=== PATIENT | male | born 1960 | race African-American/Black ===

== ENCOUNTER 2016-06-02 15:18 | Inpatient (IN) | payer MEDICARE, MEDICAID ==
[~2016-06-02] VITALS: Ht 172.7 cm; Wt 74.0 kg
[2016-06-02] VITALS (20 sets, daily range): BP systolic 139–231; BP diastolic 76–136; PULSE 82–122; RESP 14–24; TEMP 97.8; O2SAT 92–100
[2016-06-02] MEDS ORDERED: PROPOFOL 1000 MG/100 ML INJ 100 ML ONE (15:23)
[2016-06-02] MEDS ORDERED: PROPOFOL 1000 MG/100 ML INJ 100 ML IV SCH ×2 (15:45→17:15)
[2016-06-02] MEDS ORDERED: ROCURONIUM INJ 100 MG/10 ML VIAL IV ONE (15:45)
[2016-06-02] MEDS ORDERED: LORazepam 2 MG/ML VIAL IV PUSH ONE (15:45)
[2016-06-02] MEDS ORDERED: niCARdipine INJ 25 MG in SODIUM CHLOR 0.9% 250 ML INJ 250 ML IV SCH (15:45)
[2016-06-02] MEDS ORDERED: ETOMIDATE 20 MG/10 ML VIAL IV PUSH ONE (15:45)
[2016-06-02 16:09] LABS: AUTOMATED NEUTROPHIL # 4.5 TH/MM3 (1.8-7.7); BASOPHIL % 0.7 % (0.0-2.0); EOSINOPHIL % 0.7 % (0.0-4.0); HEMO FLAGS DIFF FINAL; LYMPH % 11.3 % (9.0-44.0); LYMPHOCYTE # 0.7 TH/MM3 (1.0-4.8); MEAN CELL VOLUME 89.2 FL (80.0-100.0); MEAN CORPUSCULAR HEMOGLOBIN 30.5 PG (27.0-34.0); MEAN CORPUSCULAR HGB CONC 34.2 % (32.0-36.0); MONO % 11.5 % (0.0-8.0); NEUT % 75.8 % (16.0-70.0); PLATELET COUNT 180 TH/MM3 (150-450); RED BLOOD COUNT 4.26 MIL/MM3 (4.50-5.90); RED CELL DISTRIBUTION WIDTH 15.4 % (11.6-17.2); WHITE BLOOD COUNT 5.9 TH/MM3 (4.0-11.0)
--- NOTE | 2016-06-02 16:13 | RADRPT ---
EXAM DATE/TIME: 06/02/2016 15:47 [facility] COMPARISON: No previous studies available for comparison. INDICATIONS : Syncopal episode. Post intubation. MEDICAL HISTORY : Unobtainable SURGICAL HISTORY : Unobtainable ENCOUNTER: Initial ACUITY: 1 day PAIN SCORE: Non-responsive. LOCATION: chest FINDINGS: Endotracheal tube tip is well above the kathryn. Gastric tube tip is projected in the stomach, but th e side-port is approximately 2.5 cm above the level of the diaphragm. the right lung is clear. Ther e are patchy infiltrates in the left lower lung with partial loss of delineation of the left hemidiap hragm. No evidence of pneumothorax. The heart is normal in size. CONCLUSION: 1. ET tube in good position. 2. Gastric tube side-port is above the level of the diaphragm and needs to be advanced at least 4 cm. 3. Patchy infiltrates at the left lung base with partial consolidation. Hubert Gonzalez MD on June 02, 2016 at 16:09 Board Certified Radiologist. This report was verified electronically.
[2016-06-02 16:15] LABS: I-STAT POTASSIUM 3.9 MMOL/L (3.5-4.9); I-STAT SODIUM 143 MMOL/L (138-146)
[2016-06-02 16:22] LABS: PROTHROMBIN TIME - PATIENT 11.4 SEC (9.8-11.6)
--- NOTE | 2016-06-02 16:24 | RADRPT ---
EXAM DATE/TIME: 06/02/2016 16:04 [facility] COMPARISON: No previous studies available for comparison. INDICATIONS : Altered mental status. RADIATION DOSE: 52.36 CTDIvol (mGy) MEDICAL HISTORY : Non-responsive. SURGICAL HISTORY : Non-responsive. ENCOUNTER: Initial ACUITY: 1 day PAIN SCALE: Non-responsive LOCATION: cranial TECHNIQUE: Multiple contiguous axial images were obtained of the head. Using automated exposure control and adj ustment of the mA and/or kV according to patient size, radiation dose was kept as low as reasonably a chievable to obtain optimal diagnostic quality images. FINDINGS: CEREBRUM: The ventricles are normal for age. No evidence of midline shift, mass lesion, hemorrhage or acute in farction. No extra-axial fluid collections are seen. POSTERIOR FOSSA: The cerebellum and brainstem are intact. The 4th ventricle is midline. The cerebellopontine angle i s unremarkable. EXTRACRANIAL: The visualized portion of the orbits is intact. SKULL: The calvaria is intact. No evidence of skull fracture. CONCLUSION: Negative noncontrast CT brain. Hubert Gonzalez MD on June 02, 2016 at 16:22 Board Certified Radiologist. This report was verified electronically.
[2016-06-02 16:26] LABS: ALKALINE PHOSPHATASE 127 U/L (45-117); ALT (GPT) 26 U/L (12-78); ANION GAP 21 MEQ/L (5-15); AST (GOT) 3 U/L (15-37); BICARBONATE 24.8 MEQ/L (21.0-32.0); BLOOD UREA NITROGEN 98 MG/DL (7-18); CHLORIDE 97 MEQ/L (98-107); GLOMERULAR FILTRATION RATE 2 ML/MIN (>89); POTASSIUM 3.9 MEQ/L (3.5-5.1); SODIUM (NA) 143 MEQ/L (136-145); TOTAL BILIRUBIN ADULT 0.5 MG/DL (0.2-1.0)
[2016-06-02 16:38] LABS: BLOOD GAS BASE EXCESS 1.5 mmol/L (-2-2); BLOOD GAS CARBOXYHEMOGLOBIN 1.9 % (0-4); BLOOD GAS HCO3 24 mmol/L (22-26); BLOOD GAS METHEMOGLOBIN 2.1 % (0-2); BLOOD GAS O2 HGB SATURATION 96 % (90-100); BLOOD GAS OXYGEN CONTENT 18.9 Vol % (12.0-20.0); BLOOD GAS PCO2 31 mmHg (38-42); BLOOD GAS PO2 307 mmHG (61-120); BLOOD GAS TOTAL HGB 13.5 G/DL (12.0-16.0); TEMP CORR TO 98.6
[2016-06-02 16:39] LABS: CRITICAL VALUE YES; DRAW SITE RT RADIAL; FIO2 100 %; NUMBER OF ARTERIAL PUNCTURES 1; OXYGEN DEVICE VENTILATOR; STAT YES; VENT SETTINGS A/C14/550/PEEP5
--- NOTE | 2016-06-02 17:13 | PD ---
HPI Chief Complaint: Altered Mental Status Time Seen by Provider: 15:34 Travel History International Travel<30 days: No Contact w/Intl Traveler<30days: No Traveled to known affect area: No History of Present Illness HPI Patient of unknown identity was brought in by EMS as a syncopal episode and altered mental status. The roommate called EMS because patient was found unresponsive. As history of end-stage renal disease and is on peritoneal dialysis. Patient started to regain consciousness en route and told the paramedics about his medical history. As per them he was in half-way for some time and now he is doing peritoneal dialysis twice a day at home. They brought his home medications with them. I was called emergently into the room as soon as the paramedics brought him inside the room because he was unconscious again with a left lateral gaze. Blood pressure was 250/150. He was unresponsive. Oxygen saturation was in the 70s to 80s. It seemed like he was having a tonic seizure. PFSH Past Medical History Narrative Medical End-stage renal disease, hemodialysis Social History Tobacco Use: Yes Allergies-Medications (Allergen,Severity, Reaction): Coded Allergies: UNOBTAINABLE (Unverified , 06/02/16) Comments Unobtainable Reported Meds & Prescriptions Reported Meds & Active Scripts Active Reported Renagel (Sevelamer HCl) 800 Mg Tab 2,400 Mg PO TID Afeditab CR (Nifedipine) 30 Mg Tab 30 Mg PO BID Ranitidine (Ranitidine HCl) 150 Mg Tab 150 Mg PO DAILY Nephrocaps (B-Complex W/ C & Folic Acid) 1 Cap 1 Cap PO DAILY If on dialysis, take after treatment. Lisinopril 20 Mg Tab 20 Mg PO DAILY Calcitriol 0.25 Mcg Cap 0.25 Mcg PO Losartan (Losartan Potassium) 100 Mg Tab 100 Mg PO BID Pantoprazole (Pantoprazole Sodium) 40 Mg Tab 40 Mg PO DAILY Narrative Medication [facility]. Review of Systems Except as stated in HPI: all other systems reviewed are Neg Physical Exam Narrative GENERAL: Unresponsive, left lateral gaze with nystagmus, drooling SKIN: Warm and dry. Pallor HEAD: Atraumatic. Normocephalic. EYES: Pupils equal and round. No scleral icterus. No injection or drainage. Left lateral gaze with nystagmus, pallor ENT: No nasal bleeding or discharge. Mucous membranes pink and moist. NECK: Trachea midline. No JVD. CARDIOVASCULAR: Regular rate and rhythm. No murmur appreciated. RESPIRATORY: No accessory muscle use. Clear to auscultation. Breath sounds equal bilaterally. GASTROINTESTINAL: Abdomen soft, non-tender, nondistended. Hepatic and splenic margins not palpable. MUSCULOSKELETAL: No obvious deformities. No clubbing. No cyanosis. No edema. NEUROLOGICAL: GCS of 3 PSYCHIATRIC: Unable to assess Data Data Last Documented VS Vital Signs Date Time Temp Pulse Resp B/P Pulse Ox O2 Delivery O2 Flow Rate FiO2 06/02/16 17:00 94 20 165/91 100 Ventilator 06/02/16 16:40 50 Orders Propofol 1000 Mg/100 Ml Inj (Diprivan 10 (06/02/16 15:23) Electrocardiogram (06/02/16 15:22) Alcohol (Ethanol) (06/02/16 15:22) Ammonia (06/02/16 15:22) Complete Blood Count With Diff (06/02/16 15:22) Comprehensive Metabolic Panel (06/02/16 15:22) Prothrombin Time / Inr (Pt) (06/02/16 15:22) Act Partial Throm Time (Ptt) (06/02/16 15:22) Troponin I (06/02/16 15:22) Lactic Acid Sepsis Protocol (06/02/16 15:22) Arterial Blood Gas (Abg) (06/02/16 15:22) Blood Culture (06/02/16 15:22) Chest, Single Ap (06/02/16 15:22) Ct Brain W/O Iv Contrast(Rout) (06/02/16 15:22) Blood Glucose (06/02/16 15:22) Ecg Monitoring (06/02/16 15:22) Iv Access Insert/Monitor (06/02/16 15:22) Cath For Specimen (06/02/16 15:22) Oximetry (06/02/16 15:22) Type And Screen (06/02/16 15:22) Rocuronium Inj (Zemuron Inj) (06/02/16 15:45) Etomidate Inj (Amidate Inj) (06/02/16 15:45) Nicardipine Inj (Cardene Inj) (06/02/16 15:45) Lorazepam Inj (Ativan Inj) (06/02/16 15:45) Propofol 1000 Mg/100 Ml Inj (Diprivan 10 (06/02/16 15:45) ^ Infusion (06/02/16 15:38) RASS (06/02/16 15:38) Neurological Rass Scale TOSHIA.Q2H (06/02/16 15:38) Tyra-Gastric Tube Insert/Mon (06/02/16 15:38) I-Stat Creatinine (06/02/16 15:22) I-Stat Profile (06/02/16 15:22) Piperacil-Tazo 4.5 Gm Premix (Zosyn 4.5 (06/02/16 17:15) Vancomycin Inj (Vancomycin Inj) (06/02/16 17:15) Admit To Inpatient (06/02/16 ) Code Status (06/02/16 17:02) Vital Signs (Adult) TOSHIA.Q1H (06/02/16 17:02) Activity Bed Rest (06/02/16 17:02) ^ Elevate Head Of Bed (06/02/16 17:02) Neuro Checks . ORDERED (06/02/16 17:02) Pantoprazole Inj (Protonix Inj) (06/02/16 17:15) Albuterol-Ipratropium Neb (Duoneb Neb) (06/02/16 17:15) Complete Blood Count With Diff (06/03/16 04:00) Comprehensive Metabolic Panel (06/03/16 04:00) Consult Nephrology (06/02/16 ) Programmer Operator Numerical Control / Telemetry (06/02/16 17:02) Heparin Inj (Heparin Inj) (06/02/16 18:00) Scd Bilateral/Knee High TOSHIA.BID (06/02/16 17:02) ^ Initiate Protocol (06/02/16 17:02) ^ Instruction (06/02/16 17:02) [facility] [place] Nursing Information (06/02/16 17:15) Chlorhexidine 2% Cloth (Chlorhexidine 2% (06/03/16 04:00) Chlorhexidine 2% Cloth (Chlorhexidine 2% (06/02/16 17:15) Mrsa Pcr Surveillance (06/02/16 17:02) Inpatient Certification (06/02/16 ) Sputum Culture And Gram Stain (06/02/16 17:02) Legionella Urinary Antigen (06/02/16 17:02) Pneumococcal Urinary Antigen (06/02/16 17:02) Eeg Study (06/02/16 ) Consult Neurology (06/02/16 ) Propofol 1000 Mg/100 Ml Inj (Diprivan 10 (06/02/16 17:15) Lorazepam Inj (Ativan Inj) (06/02/16 17:15) Azithromycin Inj (Zithromax Inj) (06/02/16 18:00) Dextrose 50% In Divya (Vial) Inj (D50w (Vi (06/02/16 17:15) Glucagon Inj (Glucagon Inj) (06/02/16 17:15) Insulin Human Reg Supp Scale (Novolin R (06/02/16 17:15) Admit Order (Ed Use Only) (06/02/16 17:14) Piperacil-Tazo 2.25 Gm Premix (Zosyn 2.2 (06/03/16 00:00) Labs Laboratory Tests Test 06/02/16 06/02/16 06/02/16 15:33 15:34 16:28 Bedside Hemoglobin 13.6 G/DL Bedside Hematocrit 40.0 % Prothrombin Time 11.4 SEC Prothromb Time International 1.0 RATIO Ratio Activated Partial 28.0 SEC Thromboplast Time Bedside Sodium 143 MMOL/L Sodium Level 143 MEQ/L Bedside Potassium 3.9 MMOL/L Potassium Level 3.9 MEQ/L Bedside Chloride 101 MMOL/L Chloride Level 97 MEQ/L Carbon Dioxide Level 24.8 MEQ/L Anion Gap 21 MEQ/L Bedside Blood Urea Nitrogen 94 MG/DL Blood Urea Nitrogen 98 MG/DL Creatinine 29.15 MG/DL Bedside Creatinine GREATER THAN 20.0 MG/DL Estimat Glomerular Filtration 2 ML/MIN Rate Bedside Glucose 154 MG/DL Random Glucose 154 MG/DL Lactic Acid Level 5.1 mmol/L Calcium Level 8.8 MG/DL Total Bilirubin 0.5 MG/DL Aspartate Amino Transf 3 U/L (AST/SGOT) Alanine Aminotransferase 26 U/L (ALT/SGPT) Alkaline Phosphatase 127 U/L Ammonia LESS THAN 10 MCMOL/L Troponin I 0.16 NG/ML Total Protein 7.5 GM/DL Albumin 3.0 GM/DL Ethyl Alcohol Level LESS THAN 3 MG/DL White Blood Count 5.9 TH/MM3 Red Blood Count 4.26 MIL/MM3 Hemoglobin 13.0 GM/DL Hematocrit 38.0 % Mean Corpuscular Volume 89.2 FL Mean Corpuscular Hemoglobin 30.5 PG Mean Corpuscular Hemoglobin 34.2 % Concent Red Cell Distribution Width 15.4 % Platelet Count 180 TH/MM3 Mean Platelet Volume 9.9 FL Neutrophils (%) (Auto) 75.8 % Lymphocytes (%) (Auto) 11.3 % Monocytes (%) (Auto) 11.5 % Eosinophils (%) (Auto) 0.7 % Basophils (%) (Auto) 0.7 % Neutrophils # (Auto) 4.5 TH/MM3 Lymphocytes # (Auto) 0.7 TH/MM3 Monocytes # (Auto) 0.7 TH/MM3 Eosinophils # (Auto) 0.0 TH/MM3 Basophils # (Auto) 0.0 TH/MM3 CBC Comment DIFF FINAL Differential Comment Crossmatch Leukocyte-Reduced Red Blood Cells Blood Bank Comment Blood Gas Puncture Site RT RADIAL Blood Gas Patient Temperature 98.6 Blood Gas HCO3 24 mmol/L Blood Gas Base Excess 1.5 mmol/L Blood Gas Oxygen Saturation 96 % Arterial Blood pH 7.51 Arterial Blood Partial 31 mmHg Pressure CO2 Arterial Blood Partial 307 mmHG Pressure O2 Arterial Blood Oxygen Content 18.9 Vol % Arterial Blood 1.9 % Carboxyhemoglobin Arterial Blood Methemoglobin 2.1 % Blood Gas Hemoglobin 13.5 G/DL Oxygen Delivery Device VENTILATOR Blood Gas Ventilator Setting A/C14/550/PEEP5 Blood Gas Inspired Oxygen 100 % [facility] Medical Decision Making Medical Screen Exam Complete: Yes Emergency Medical Condition: Yes Medical Record Reviewed: Yes Interpretation(s) Twelve-lead EKG was reviewed by me. Normal sinus rhythm, normal axis, LVH, peaked T waves. Heart rate of 90 bpm. Differential Diagnosis Status epilepticus, respiratory failure, anemia, intracranial bleed, end-stage renal disease, electrolyte abnormalities Narrative Course 5 PM decision was made by me to intubate the patient in order to protect his airway. Patient was initially given 2 mg of IV Ativan. After the successful RSI was done patient was started on Cardene drip and propofol drip. CAT scan was done emergently which was within normal limits. Blood test so far are within normal limit except for his BUN/creatinine that's expectantly high. Lactic acid is elevated which in my opinion is from seizures. Have admitted the patient to the line repairer who has requested a dose of Zosyn and vancomycin. Patient quite possibly has an aspiration pneumonia. Current blood pressure is 175 systolic. 5:30 PM I spoke with Dr. Vázquez and requested him to consult on the patient urgently for dialysis. Critical Care Narrative Aggregate critical care time was 60 minutes. Time to perform other separately billable procedures was not included in the critical care time. My time did not include minutes spent treating any other patients simultaneously or on activities that did not directly contribute to the patient's treatment. The services I provided to this patient were to treat and/or prevent clinically significant deterioration that could result in: Status epilepticus, hypertensive emergency, respiratory failure I provided critical care services requiring my management, as noted below: Chart data review, documentation time, medication orders and management, vital sign assessments/reviewing monitor data, ordering and reviewing lab tests, ordering and interpreting/reviewing x-rays and diagnostic studies, care of the patient and discussion of the patient with the admitting physicians. Procedures Procedure Narrative After the risks and benefits were discussed the following procedure was performed: INTUBATION: The patient was put in optimal position for the procedure. Rapid sequence intubation was initiated by me using 20 milligrams of etomidate IV and 100 milligrams of rocuronium IV. The patient was intubated with a 7.5 cuffed endotracheal tube. Tube placement was confirmed by visualization of the tube and balloon passing through the cords, capnometry and subsequent chest x-ray. Breath sounds were equal and well aerated bilaterally postintubation. No breath sounds over stomach. Patient tolerated procedure well. EKG Prior to Arrival: No Physician Communication Physician Communication Dr. Brennan, Dr. Vázquez Diagnosis Primary Impression: Status epilepticus Additional Impressions: Hypertensive emergency Respiratory failure Qualified Code: J96.01 - Acute respiratory failure with hypoxia Aspiration pneumonia Qualified Code: J69.0 - Aspiration pneumonia of right lower lobe, unspecified aspiration pneumonia type Elevated troponin I level End stage renal disease Peritoneal dialysis status Admitting Information Admitting Physician Requests: Admit Scripts Cefuroxime 500 Mg Osa461 Mg PO BID #14 TAB Ref 0 Prov:Gabe Eid MD 06/05/16 Azithromycin 500 Mg Tep195 Mg PO DAILY #5 TAB Ref 0 Prov:Gabe Eid MD 06/05/16 Carvedilol 12.5 Mg Tab12.5 Mg PO BID #60 TAB Ref 0 Prov:Gabe Eid MD 06/05/16 Hydralazine 25 Mg Tab25 Mg PO TID #90 TAB Ref 0 Take with a meal Prov:Gabe Eid MD 06/05/16 Lisa Mtz MD Jun 02, 2016 17:13
[2016-06-02] MEDS ORDERED: GLUCAGON 1 MG/ML VIAL OTHER PRN (17:15)
[2016-06-02] MEDS: PANTOPRAZOLE SODIUM 40 MG VIAL IV SCH (17:15)
[2016-06-02] MEDS ORDERED: CHLORHEXIDINE GLUCONATE 2 % 1 PACK (2 CLOTHS) TOP PRN (17:15)
[2016-06-02] MEDS ORDERED: LORazepam 2 MG/ML VIAL IV PUSH PRN (17:15)
[2016-06-02] MEDS ORDERED: VANCOMYCIN INJ 1,000 MG in SODIUM CHLOR 0.9% 250 ML INJ 250 ML IV SCH (17:15)
[2016-06-02] MEDS ORDERED: DEXTROSE 50% IN WATER 50 ML VIAL(D50) IV PUSH PRN (17:15)
[2016-06-02] MEDS ORDERED: PIPERACIL-TAZO 4.5 GM PREMIX 100 ML IV ONE (17:15)
[2016-06-02] MEDS ORDERED: MISCELLANEOUS NURSING INFORMATION XX SCH (17:15)
[2016-06-02] MEDS: RESP: ALBUTEROL 2.5 MG/IPRATROPIUM 0.5 MG NEB (SCH) INH ×2 (17:32→23:30)
[2016-06-02 17:49] LABS: LACTIC ACID GHOST NOT REPORTABLE
--- NOTE | 2016-06-02 18:03 | MH ---
cc: BRYSON PANDEY M.D. DATE OF ADMISSION: 06/02/2016 HISTORY OF PRESENT ILLNESS: The patient is a 2-biz-djip-old male with past medical history of end-stage renal disease on hemodialysis who was brought in by EMS for altered mental status. The roommate called EMS after the patient was found unresponsive. He regained consciousness en route. He is on peritoneal dialysis twice a day at home. The patient was given Narcan 0.4 mg en route without any significant relief. In the emergency room, he became unconscious again with a left lateral gaze. The patient was hypertensive with a blood pressure of 250/150 and he dropped his saturation in the 70s to 80s. The patient was subsequently intubated with etomidate and vecuronium and placed on full mechanical ventilation. In addition he is sedated with Diprivan and received Ativan 2 milligrams IV push at 1520. Due to his altered mental status, CT scan of the brain was obtained which did not show any evidence of acute intracranial process. He was started on Cardene drip and his last blood pressure was 160/83. ABG post-intubation showed a pH of 7.51, CO2 31, pAO2 307, bicarb 24 and saturation of 96% on assist control ventilation with a rate of 14, tidal volume 550, PEEP of 5 and 100% FIO2. His laboratory data is significant for a BUN of 98, a creatinine of 29.1 and a potassium level of 3.9. The patient also was found to have elevated lactic acid level at 5.1. His alcohol level was less than 3. IMAGING STUDIES: Chest x-ray post-intubation showed the ET tube above the kathryn and patchy infiltrates in the left lung and the left lung base with partial consolidation. PAST MEDICAL HISTORY: Past medical history is significant for: 1. End-stage renal disease on preliminary dialysis twice a day. 2. Hypertension. PAST SURGICAL HISTORY: Unobtainable. ALLERGIES: Unobtainable. MEDICATIONS: Unknown. FAMILY HISTORY: Noncontributory. SOCIAL HISTORY: Unknown. REVIEW OF SYSTEMS: Unobtainable. PHYSICAL EXAMINATION: GENERAL: The patient is a 68-oyo-kaxy-old male intubated and sedated with Diprivan. VITAL SIGNS: Afebrile. Pulse of 100. Blood pressure on arrival was 250/150, currently 160/83, saturation 97%. VENT SETTINGS: Assist control rate of 14, tidal volume 550, PEEP of 5, 50% FIO2. HEAD, EYES, EARS, NOSE, THROAT: Normocephalic and atraumatic. Pupils equal, round and reactive to light and accommodation. Extraocular muscles intact. Left lateral gaze with nystagmus noted. NECK: The neck is supple. No jugular venous distention, adenopathy or thyromegaly. Trachea in the midline. Orally intubated. CARDIOVASCULAR: Regular rate and rhythm. Normal S1 and S2. No murmurs, rubs or gallops noted. PULMONARY: Bilateral equal air entry. No rales or wheezing. ABDOMEN: The abdomen is soft, nontender and no distention. Positive bowel sounds. EXTREMITIES: No cyanosis, clubbing or edema. PHYSICAL EXAMINATION The patient is a 41. She rolled male intubated and sedated with Diprivan. Vital signs: Afebrile, pulse of 100, blood pressure on arrival 250/52, 251, 50 currently 160/83, saturation 97% vent setting assist control rate of 14, tidal volume 550, PEEP of five 50% FIO2. HEENT: Atraumatic, normocephalic pupil equal and active to accommodation X on muscles intact. Left lateral gaze with nystagmus noted. Neck: Supple. No JVD, adenopathy or thyromegaly. Trachea midline. Orally intubated. Cardiovascular: Regular rate and rhythm. Normal S1-S2. No murmurs, rubs or gallops noted. Pulmonary exam bilateral equal NEUROLOGIC: Intubated and sedated with Diprivan. LABORATORY DATA: WBCs 5.9, hemoglobin 13, hematocrit 38, platelet count of 180,000. Sodium 143, potassium 3.9, chloride 97, CO2 24, BUN 98, creatinine 29.1, glucose 154, lactic acid 5.1, ammonia less than 10. INR 1, PT 11.4. Alcohol level less than 3. IMAGING STUDIES: CT brain negative for acute intracranial process. Chest x-ray showed ET tube above the kathryn, patchy infiltrates in the left lung base with partial consolidation. IMPRESSION: 1. Acute respiratory failure requiring intubation and mechanical ventilation. 2. Altered mental status, rule out seizure versus hypertensive encephalopathy. 3. Hypertensive emergency. 4. Lactic acidemia likely related to seizures. 5. End-stage renal disease on peritoneal dialysis. 6. Aspiration pneumonia. 7. Hyperglycemia. RECOMMENDATIONS: 1. Continue with Diprivan infusion for sedation and daily sedation vacation when appropriate. 2. Monitor neuro status closely. CT scan of the brain in the emergency department showed no evidence of any acute intracranial process. 3. Will consult neurology service and will obtain EEG. 4. Continue with Ativan 1 milligram q. 4-hour p.r.n. for seizures and agitation. 5. Continue with vent support and maintain sats above 92%. 6. Bronchodilators in the form of DuoNeb q. 6. 7. We will initiate ICU vent bundle. 8. Decrease tidal volume to 500 and FIO2 240%. 9. Monitor heart rate and blood pressure closely and maintain MAP greater 65 mmHg. 10. Wean off Cardene drip. 12. Serial lactic acid monitoring. 13. Obtain a 2-D echocardiogram to evaluate left ventricular function and rule out regional wall motion abnormalities. 14. EKG in the emergency department showed normal sinus rhythm, left ventricular hypertrophy, peaked T waves with heart rate of 90 beats per minute. 15. Monitor renal function and avoid nephrotoxins. Dr. Vázquez from the nephrology service has been consulted for dialysis. The patient is on peritoneal dialysis at home. In addition he has a functioning fistula in the left upper extremity. 16. Keep n.p.o. for now and place on Protonix 40 milligrams IV daily. Start nutrition support within the next 24 hours if remains intubated. 17. Place on broad-spectrum antibiotics. Will give one dose of vancomycin and place on Zosyn and azithromycin. Monitor for signs of infection which includes fever and WBC. Will obtain a sputum culture with gram stain and will check strep pneumoniae and Legionella urinary antigen. Two sets of blood cultures have been have been has been performed in the emergency department. 18. Place on sliding scale insulin with Accu-Chek q. 6-hour for glycemic control. 19. Monitor CBC. 20. GI prophylaxis with Protonix 40 milligrams daily and DVT prophylaxis with SCDs and heparin subcu. Further recommendations will be based on the hospital course. CRITICAL CARE TIME: Fifty (50) minutes excluding procedures. MD PEDRO Hill/MARÍA /5:30 PM /5:48 PM
[2016-06-02] MEDS ORDERED: SODIUM CHLOR 0.9% 1000 ML INJ 1,000 ML IV PRN ×2 (18:37)
--- NOTE | 2016-06-02 18:44 | PD.CONS ---
[facility] Service Nephrology Consult Requested By Reason for Consult ESRD Primary Care Physician Unknown History of Present Illness This patient's name appears to be Ramone Aguirre. He is an male who appears to have ESRD. He has a PD catheter and a mature, well formed AVF(left arm). Apparently he was currently on PD. No history could be obtained from him as he is currently intubated, on the ventilator, and unresponsive. He was found with altered mental status in a "[place]" near the local [place]dc and roommates or neighbors called EMS. He was brought to the ER. ER staff noted that he had "nystagmus". Soon he became completely unresponsive. He was intubated. Apparently he was in fdc, and released recently. No confirmation of this story is available. Also not known is who was managing his dialysis. His serum K was 3.9, BUN 98, and creatinine around 29. He was hypertensive, and placed on Cardene drip. Review of Systems ROS Limitations: Clinical Condition, Altered Mental Status, Unresponsive Past Family Social History Allergies: Coded Allergies: UNOBTAINABLE (Unverified , 06/02/16) Past Medical History I reviewed the medications that he was prescribed, and based on that, I believe he has ESRD, hypertension, hyperphosphatemia, secondary hyperparathyroidism. Past Surgical History AVF placement. PD catheter placement. Reported Medications Noted. Active Ordered Medications Current Medications Medications (Trade) Dose Ordered Sig/Chris Route Start Time Stop Time Status Last Admin (Cardene Inj/NS 250 ml Inj) 260 ml @ 0 mls/hr TITRATE IV 06/02/16 15:45 06/02/16 16:49 (Protonix Inj) 40 mg DAILY IV 06/02/16 17:15 (Heparin Inj) 5,000 units Q12H SQ 06/02/16 18:00 Miscellaneous Information 1 Q361D XX 06/02/16 17:15 (Chlorhexidine 2% Cloth) 3 pack Taper DAILY@04 TOP 06/03/16 04:00 05/30/17 03:59 Chlorhexidine Gluconate 3 pack 3 pack UNSCH PRN TOP 06/02/16 17:15 Piperacillin Sod/ Tazobactam Sod 50 ml @ 100 mls/hr Q6H IV 06/03/16 00:00 (Diprivan 1000 Mg/100ml Inj) 100 ml @ 0 mls/hr TITRATE IV 06/02/16 17:15 Lorazepam 1 mg 1 mg Q4H PRN IV PUSH 06/02/16 17:15 (Zithromax Inj/ NS 250 ml Inj) 250 ml @ 250 mls/hr Q24H IV 06/02/16 18:00 (D50w (Vial) Inj) 25 ml UNSCH PRN IV PUSH 06/02/16 17:15 (Glucagon Inj) 1 mg UNSCH PRN OTHER 06/02/16 17:15 (NovoLIN R SUPPLEMENTAL SCALE) 1 Q6H SQ 06/02/16 17:15 Family History unavailable. Social History Unavailable. Physical Exam Vital Signs Vital Signs Date Time Temp Pulse Resp B/P Pulse Ox O2 Delivery O2 Flow Rate FiO2 06/02/16 18:01 92 55 06/02/16 16:40 100 50 06/02/16 15:55 100 06/02/16 15:28 100 100 06/02/16 15:20 95 17 99 06/02/16 15:20 104 18 231/136 99 Physical Exam GENERAL: Young male, intubated, unresponsive. SKIN: Warm and dry. HEAD: Normocephalic. EYES: No scleral icterus. No injection or drainage. NECK: Supple, trachea midline. No JVD or lymphadenopathy. CARDIOVASCULAR: Regular rate and rhythm without murmurs, gallops, or rubs. RESPIRATORY: bilateral wheezing and rhonchi GASTROINTESTINAL: Abdomen soft, non-tender, nondistended. MUSCULOSKELETAL: trace edema. BACK: No CVA tenderness. Laboratory Laboratory Tests Test 06/02/16 06/02/16 06/02/16 15:33 16:28 18:00 White Blood Count 5.9 Red Blood Count 4.26 Hemoglobin 13.0 Bedside Hemoglobin 13.6 Hematocrit 38.0 Bedside Hematocrit 40.0 Mean Corpuscular Volume 89.2 Mean Corpuscular Hemoglobin 30.5 Mean Corpuscular Hemoglobin 34.2 Concent Red Cell Distribution Width 15.4 Platelet Count 180 Mean Platelet Volume 9.9 Neutrophils (%) (Auto) 75.8 Lymphocytes (%) (Auto) 11.3 Monocytes (%) (Auto) 11.5 Eosinophils (%) (Auto) 0.7 Basophils (%) (Auto) 0.7 Neutrophils # (Auto) 4.5 Lymphocytes # (Auto) 0.7 Monocytes # (Auto) 0.7 Eosinophils # (Auto) 0.0 Basophils # (Auto) 0.0 CBC Comment DIFF FINAL Differential Comment Prothrombin Time 11.4 Prothromb Time International 1.0 Ratio Activated Partial 28.0 Thromboplast Time Bedside Sodium 143 Sodium Level 143 Bedside Potassium 3.9 Potassium Level 3.9 Bedside Chloride 101 Chloride Level 97 Carbon Dioxide Level 24.8 Anion Gap 21 Bedside Blood Urea Nitrogen 94 Blood Urea Nitrogen 98 Creatinine 29.15 Bedside Creatinine GREATER THAN 20.0 Estimat Glomerular Filtration 2 Rate Bedside Glucose 154 Random Glucose 154 Lactic Acid Level 5.1 Calcium Level 8.8 Total Bilirubin 0.5 Aspartate Amino Transf 3 (AST/SGOT) Alanine Aminotransferase 26 (ALT/SGPT) Alkaline Phosphatase 127 Ammonia LESS THAN 10 Troponin I 0.16 Total Protein 7.5 Albumin 3.0 Ethyl Alcohol Level LESS THAN 3 Blood Gas Puncture Site RT RADIAL Blood Gas Patient Temperature 98.6 Blood Gas HCO3 24 Blood Gas Base Excess 1.5 Blood Gas Oxygen Saturation 96 Arterial Blood pH 7.51 Arterial Blood Partial 31 Pressure CO2 Arterial Blood Partial 307 Pressure O2 Arterial Blood Oxygen Content 18.9 Arterial Blood 1.9 Carboxyhemoglobin Arterial Blood Methemoglobin 2.1 Blood Gas Hemoglobin 13.5 Oxygen Delivery Device VENTILATOR Blood Gas Ventilator Setting A/C14/550/PEEP5 Blood Gas Inspired Oxygen 100 Blood Type A NEGATIVE Date/Time Procedure Status Source Growth 06/02/16 15:38 Aerobic Blood Culture Received Blood Peripheral Pending 06/02/16 15:38 Anaerobic Blood Culture Received Blood Peripheral Pending Result Diagram: 06/02/16 1533 06/02/16 1533 Assessment and Plan Problem List: (1) End stage renal disease Plan: High BUN and creatinine suggest inadequate dialysis. It is possible that he was non compliant with PD, and may not have had dialysis for several days. It is conceivable that altered mental status and possible seizure are due to uremia. Serum potassium is acceptable. Some evidence of fluid overload, but most likely he makes good amount of urine as serum potassium is not high. He has a functioning AVF, and I will dialyze him using AVF. In order to prevent dialysis disequilibrium syndrome, will use low blood flow rate and dialyze him for 2 hours. Possible dialysis again tomorrow. Monitor BP response. Obtain phosphorus level. (2) Hypertensive emergency Plan: Currently on Cardene drip. Monitor. He may have non compliant with medications. (3) Encephalopathy Plan: Metabolic encephalopathy. Possible seizure. Possible sepsis, although less likely. Assessment and Plan Thanks for the consult. His prognosis is guarded. We will follow. Bridger Vázquez MD Jun 02, 2016 18:44
[2016-06-02] MEDS ORDERED: MANNITOL 12.5 GM/50 ML VIAL IV PRN (18:45)
[2016-06-02] MEDS ORDERED: cloNIDine HCL 0.1 MG TAB PO PRN (18:45)
[2016-06-02] MEDS ORDERED: ONDANSETRON HCL 4 MG/2 ML VIAL IV PRN (18:45)
[2016-06-02] MEDS ORDERED: NITROGLYCERIN 0.4 MG SL 25 TABS/BTL SL PRN (18:45)
[2016-06-02] MEDS ORDERED: GENTAMICIN SULFATE (DIALYSIS USE ONLY) 20 MG/2 ML VIAL IV PRN (18:45)
[2016-06-02] MEDS ORDERED: ACETAMINOPHEN 325 MG TAB PO PRN (18:45)
[2016-06-02] MEDS ORDERED: HEPARIN SODIUM - IV 10,000 UNITS/10 ML VIAL PRN (18:45)
[2016-06-02] MEDS ORDERED: HEPARIN SODIUM - IV 10,000 UNITS/10 ML VIAL IVF PRN (18:45)
[2016-06-02] MEDS ORDERED: SODIUM CHLORIDE 0.9% FLUSH 5 ML FLUSH IVF PRN (18:45)
[2016-06-02] MEDS ORDERED: ALBUMIN HUMAN 25% 25 GM/100 ML BAGP IV PRN (18:45)
[2016-06-02] MEDS ORDERED: diphenhydrAMINE HCL 25 MG CAP PO PRN (18:45)
[2016-06-02] MEDS ORDERED: RANI150T PO (19:09)
[2016-06-02] MEDS ORDERED: B-CO1CAP9 PO (19:09)
[2016-06-02] MEDS ORDERED: PANT40TA3 PO (19:09)
[2016-06-02] MEDS ORDERED: CALC0.25 PO (19:09)
[2016-06-02] MEDS ORDERED: LISI-515 PO (19:09)
[2016-06-02] MEDS ORDERED: SEVE800T PO (19:09)
[2016-06-02] MEDS ORDERED: CARV25TA PO (19:09)
[2016-06-02] MEDS ORDERED: HYDR25TA35 PO (19:09)
[2016-06-02] MEDS ORDERED: LOSA100T PO (19:09)
[2016-06-02] MEDS ORDERED: AFED30TA PO (19:09)
[2016-06-02] MEDS: SODIUM CHLOR 0.9% 1000 ML INJ 1,000 ML IV PRN (20:21)
[2016-06-02] MEDS: GELATIN 12 MM/7 MM FOAM TOP PRN (20:21)
[2016-06-02 20:51] LABS: AUTOMATED NEUTROPHIL # 4.3 TH/MM3 (1.8-7.7); BASOPHIL % 0.6 % (0.0-2.0); EOSINOPHIL % 0.6 % (0.0-4.0); HEMATOCRIT 40.6 % (39.0-51.0); HEMO FLAGS DIFF FINAL; LYMPH % 11.4 % (9.0-44.0); LYMPHOCYTE # 0.6 TH/MM3 (1.0-4.8); MEAN CELL VOLUME 87.7 FL (80.0-100.0); MEAN CORPUSCULAR HEMOGLOBIN 29.8 PG (27.0-34.0); MONO % 4.2 % (0.0-8.0); NEUT % 83.2 % (16.0-70.0); PLATELET COUNT 184 TH/MM3 (150-450); RED BLOOD COUNT 4.63 MIL/MM3 (4.50-5.90); RED CELL DISTRIBUTION WIDTH 15.3 % (11.6-17.2); WHITE BLOOD COUNT 5.2 TH/MM3 (4.0-11.0)
[2016-06-02 22:17] LABS: BICARBONATE 29.8 MEQ/L (21.0-32.0)
[2016-06-02] MEDS: INSULIN NovoLIN REGULAR SUPPLEMENTAL SCALE SQ SCH (22:25)
[2016-06-02] MEDS: AZITHROMYCIN INJ 500 MG in SODIUM CHLOR 0.9% 250 ML INJ 250 ML IV SCH (22:25)
[2016-06-02] MEDS: HEPARIN SODIUM - SQ 10,000 UNITS/ML VIAL SQ SCH (22:26)
[2016-06-03] VITALS (20 sets, daily range): BP systolic 153–182; BP diastolic 89–96; PULSE 65–99; RESP 12–30; TEMP 97.8–98.9; O2SAT 97–100
[2016-06-03] MEDS: PIPERACIL-TAZO 2.25 GM PREMIX 50 ML IV SCH ×4 (00:51→23:07)
[2016-06-03] MEDS: RESP: ALBUTEROL 2.5 MG/IPRATROPIUM 0.5 MG NEB (SCH) INH ×4 (03:42→20:18)
[2016-06-03] MEDS: CHLORHEXIDINE GLUCONATE 2 % 1 PACK (2 CLOTHS) TOP SCH (04:00)
[2016-06-03 04:36] LABS: AUTOMATED NEUTROPHIL # 3.4 TH/MM3 (1.8-7.7); BASOPHIL # 0.1 TH/MM3 (0-0.2); BASOPHIL % 1.1 % (0.0-2.0); EOSINOPHIL # 0.1 TH/MM3 (0-0.4); EOSINOPHIL % 2.6 % (0.0-4.0); HEMATOCRIT 41.3 % (39.0-51.0); HEMO FLAGS DIFF FINAL; LYMPH % 21.1 % (9.0-44.0); LYMPHOCYTE # 1.1 TH/MM3 (1.0-4.8); MEAN CELL VOLUME 88.7 FL (80.0-100.0); MEAN CORPUSCULAR HEMOGLOBIN 29.5 PG (27.0-34.0); MEAN CORPUSCULAR HGB CONC 33.3 % (32.0-36.0); MONO % 10.9 % (0.0-8.0); NEUT % 64.3 % (16.0-70.0); PLATELET COUNT 150 TH/MM3 (150-450); RED BLOOD COUNT 4.66 MIL/MM3 (4.50-5.90); RED CELL DISTRIBUTION WIDTH 15.2 % (11.6-17.2); WHITE BLOOD COUNT 5.2 TH/MM3 (4.0-11.0)
[2016-06-03 04:55] LABS: ALT (GPT) 19 U/L (12-78); ANION GAP 16 MEQ/L (5-15); AST (GOT) 5 U/L (15-37); BICARBONATE 28.4 MEQ/L (21.0-32.0); BLOOD UREA NITROGEN 75 MG/DL (7-18); CHLORIDE 99 MEQ/L (98-107); POTASSIUM 3.1 MEQ/L (3.5-5.1); SODIUM (NA) 143 MEQ/L (136-145)
[2016-06-03] MEDS: INSULIN NovoLIN REGULAR SUPPLEMENTAL SCALE SQ SCH ×4 (04:58→23:15)
[2016-06-03 05:02] LABS: ALKALINE PHOSPHATASE 104 U/L (45-117); GLOMERULAR FILTRATION RATE 2 ML/MIN (>89); TOTAL BILIRUBIN ADULT 0.6 MG/DL (0.2-1.0)
[2016-06-03] MEDS: HEPARIN SODIUM - SQ 10,000 UNITS/ML VIAL SQ SCH ×2 (05:30→18:00)
[2016-06-03] MEDS ORDERED: SENNOSIDES 8.6 MG TAB PO PRN (07:00)
--- NOTE | 2016-06-03 07:08 | HHI.CCPN ---
Subjective Remarks/Hospital Course The patient is a 54-[id number]-puts-old male with past medical history of end-stage renal disease on hemodialysis who was brought in by EMS for altered mental status. The roommate called EMS after the patient was found unresponsive. He regained consciousness en route. He is on peritoneal dialysis twice a day at home. The patient was given Narcan 0.4 mg en route without any significant relief. In the emergency room, he became unconscious again with a left lateral gaze. The patient was hypertensive with a blood pressure of 250/150 and he dropped his saturation in the 70s to 80s. The patient was subsequently intubated with etomidate and vecuronium and placed on full mechanical ventilation. In addition he is sedated with Diprivan and received Ativan 2 milligrams IV push at 1520. Due to his altered mental status, CT scan of the brain was obtained which did not show any evidence of acute intracranial process. He was started on Cardene drip and his last blood pressure was 160/83. ABG post-intubation showed a pH of 7.51, CO2 31, pAO2 307, bicarb 24 and saturation of 96% on assist control ventilation with a rate of 14, tidal volume 550, PEEP of 5 and 100% FIO2. His laboratory data is significant for a BUN of 98, a creatinine of 29.1 and a potassium level of 3.9. The patient also was found to have elevated lactic acid level at 5.1. His alcohol level was less than 3. Subjective 06/03: Resting currently in bed. Awake and alert and following commands. Appears to be old blood from oral gastric tube. No bowel movement. Objective Vital Signs Date Time Temp Pulse Resp B/P Pulse Ox O2 Delivery O2 Flow Rate FiO2 06/03/16 06:00 65 06/03/16 04:08 100 35 06/03/16 04:00 98.0 14 168/96 06/02/16 19:13 Ventilator Intake and Output 06/02/16 06/02/16 06/03/16 08:00 16:00 00:00 Intake Total 367 ml Output Total 2800 ml Balance -2433 ml Result Diagram: 06/03/16 0406 06/03/16 0406 Other Results Microbiology Date/Time Procedure Status Source Growth 06/02/16 15:38 Aerobic Blood Culture Received Blood Peripheral Pending 06/02/16 15:38 Anaerobic Blood Culture Received Blood Peripheral Pending Imaging Last Impressions Head CT 06/02/16 1522 Signed Impressions: Service Date/Time: Thursday, June 02, 2016 16:04 - CONCLUSION: Negative noncontrast CT brain. Hubert Gonzalez MD Chest X-Ray 06/02/16 1522 Signed Impressions: Service Date/Time: Thursday, June 02, 2016 15:47 - CONCLUSION: 1. ET tube in good position. 2. Gastric tube side-port is above the level of the diaphragm and needs to be advanced at least 4 cm. 3. Patchy infiltrates at the left lung base with partial consolidation. Hubert Gonzalez MD Objective Remarks GENERAL: Middle-aged AA male, critically ill currently resting in bed in no acute distress SKIN: Warm and dry. No rash HEAD: Atraumatic. Normocephalic. EYES: Pupils equal and round about 3 mm bilaterally and reactive. No scleral icterus. No injection or drainage. ENT: No nasal bleeding or discharge. Mucous membranes pink and moist. NECK: Trachea midline. No JVD. CARDIOVASCULAR: Regular rate and rhythm. S1, S2. No S4. No murmur RESPIRATORY: Clear to auscultation. Breath sounds equal bilaterally. GASTROINTESTINAL: Abdomen soft, non-tender, nondistended. Hypoactive bowel sounds are appreciated. Perineal dialysis catheter clean dry and intact MUSCULOSKELETAL: Extremities without significant peripheral edema. No obvious deformities. Left AV fistula positive thrill NEUROLOGICAL: Awake and alert. No obvious cranial nerve deficits. Motor grossly within normal limits. Moving all 4 extremities spontaneously and to command. A/P Assessment and Plan Neuro/Psych: Seizure? Hypertensive crisis? CT head 06/02 revealed no acute intracranial findings EEG pending Currently not on any epileptiform medications. Neurology consult was ordered MRI brain ordered. CV: Hypertensive crisis Off Cardene drip. Home medications losartan 100 mg twice a day, lisinopril 20 mg daily, Coreg 25 mg daily, nifedipine 30 mg twice a day, hydralazine 25 mg daily # Resume losartan, Coreg and nifedipine. Follow-up 2-D echocardiogram/troponin. Currently on normal saline at 42 cc an hour Resp: Acute respiratory failure secondary to altered mental status Possible aspiration pneumonia ACV 15/500/5/35 Ventilator bundle Bronchodilator therapy every 6 hours and as needed Spontaneous breathing trials daily. Chest x-ray at admission revealed possible left lower lobe infiltrate. See ID for antibiotics GI: Gastroesophageal reflux disease Moderate protein calorie malnutrition Currently nothing by mouth except for medications. Initiate tube feeding if not extubated today Protonix for GI prophylaxis. On Zantac 150 mg by mouth daily at home. Colace/as needed Senokot for bowel regimen : No indication for [place] catheter Endo: Secondary hyperparathyroidism Sliding-scale insulin with Accu-Cheks every 6 hours to maintain euglycemia. Low regimen. Continue calcitriol 0.25 g by mouth daily. Renal: End-stage renal disease - on peritoneal dialysis? Hemodialysis? Received hemodialysis -2 L overnight. We plan hemodialysis via left AV fistula today. Heme: CBC within normal limits. Follow CBC in a.m. ID: Pneumonia? Day #2 Zithromax/Zosyn for aspiration pneumonia. Pertinent cultures 06/02 - blood cultures 2 - pending FEN: Hyperphosphatemia Hypopotassemia Resume Renagel 2400 mg by mouth 3 times a day/home medication Recheck potassium AM. Receiving hemodialysis today. MSK: PT evaluate and treat Access - Utilize peripheral IV. Central line if indicated Prophylaxis - GI - Protonix - DVT - SCD/heparin subcutaneous Critical Care: The total critical care time was 35 minutes. Time to perform other separately billable procedures was not included in the critical care time. Slick Lu MD Jun 03, 2016 07:08
[2016-06-03] MEDS: GELATIN 12 MM/7 MM FOAM TOP PRN (08:53)
[2016-06-03] MEDS: SODIUM CHLOR 0.9% 1000 ML INJ 1,000 ML IV PRN (08:53)
--- NOTE | 2016-06-03 10:30 | HHI.NPPN ---
Subjective Interval History He was seen during dialysis today. He is now awake, still intubated, tries to communicate. Understands questions. Objective Data Data 06/02/16 06/03/16 19:00 07:00 Intake Total 927 ml Output Total 2900 ml Balance -1973 ml Intake IV Total 927 ml Output Urine Total 0 ml Gastric Drainage Total 900 ml Hemodialysis 2000 ml Vital Signs Date Time Temp Pulse Resp B/P Pulse Ox O2 Delivery O2 Flow Rate FiO2 06/03/16 08:05 35 06/03/16 08:05 100 35 06/03/16 06:00 65 06/03/16 04:08 100 35 06/03/16 04:00 98.0 75 14 168/96 100 06/03/16 04:00 78 06/03/16 02:00 74 06/03/16 00:41 97 30 06/03/16 00:40 100 45 06/03/16 00:00 97.8 99 14 153/95 100 06/03/16 00:00 45 06/03/16 00:00 89 06/02/16 22:00 100 06/02/16 20:25 100 100 06/02/16 20:00 45 06/02/16 20:00 99 06/02/16 20:00 97.8 99 14 153/80 100 06/02/16 19:40 97 55 06/02/16 19:31 96 14 148/87 100 06/02/16 19:13 105 20 139/76 100 Ventilator 06/02/16 19:00 100 50 06/02/16 18:50 90 16 152/79 100 Ventilator 06/02/16 18:20 104 16 156/89 96 Ventilator 06/02/16 18:01 92 55 06/02/16 17:50 122 24 156/79 97 Ventilator 06/02/16 17:20 100 20 165/85 100 Ventilator 06/02/16 17:00 94 20 165/91 100 Ventilator 06/02/16 16:40 100 50 06/02/16 16:30 90 20 173/95 100 Ventilator 06/02/16 16:15 82 20 197/103 100 Ventilator 06/02/16 15:55 100 06/02/16 15:28 100 100 06/02/16 15:20 95 17 99 06/02/16 15:20 17 99 1/28/17 15:20 104 18 231/136 99 -: 06/03/16 0406 06/03/16 0406 Microbiology 06/02/16 Aerobic Blood Culture, Received Pending 06/02/16 Anaerobic Blood Culture, Received Pending 06/02/16 Aerobic Blood Culture, Received Pending 06/02/16 Anaerobic Blood Culture, Received Pending Physical Exam General Appearance: Well Developed Throat Throat Exam: Oral Mucosa [place] & Moist Pulmonary Resp Exam: Clear Bilaterally Cardiology CV Exam: Regular, Normal Sinus Rhythm Gastrointestinal/Abdomen GI Exam: Soft, Non-Tender, Positive Bowel Movement Musculoskeletal MS Exam: Joints Intact Extremeties Extremities Exam: No Edema Neurologic Neuro Exam: Awake Assessment/Plan Problem List: (1) End stage renal disease Plan: High BUN and creatinine suggest inadequate dialysis. It is possible that he was non compliant with PD, and may not have had dialysis for several days. It is conceivable that altered mental status and possible seizure were due to uremia. Also will have to consider the possibility of substance abuse. Dialysis again today, on 4K, UF goal is 2 liters, 3 hours, BFR of 300 ml/min. (2) Hypertensive emergency Plan: Off Cardene drip. Restart home medications. (3) Encephalopathy Plan: Metabolic encephalopathy. Possible seizure. Possible sepsis, although less likely. Improving. Bridger Vázquez MD Jun 03, 2016 10:30
--- NOTE | 2016-06-03 10:54 | MB ---
cc: ELIZABETH COVARRUBIAS M.D. DATE OF CONSULTATION: 06/03/2016 REASON FOR CONSULTATION: Renal failure with decreased responsiveness. HISTORY OF PRESENT ILLNESS: The patient is a 40 to 51 year-old with a history of renal failure and came in with decreased responsiveness. Reportedly the roommate found the patient unresponsive. He improved en route and in the emergency room was also noted to have another episode of decreased responsiveness. He was subsequently intubated. He has been sedated and at the time of my visit this morning he was having hemodialysis. He came in with a BUN of 98, creatinine 29.1. History of hypertension as well. PHYSICAL EXAMINATION: On exam the patient is intubated but awake, alert, and he appeared cooperative. He was able to count fingers bilaterally by showing with his hand how many fingers I had in front of him. He mouthed his age which I understood to be in the 50s but I am not certain. He followed commands, account clerk bilaterally, resists as well with the lower extremities. He starts raising the lower extremities. Reflexes were probably absent throughout. Plantar response is flexor. CT brain is negative. LABORATORY DATA: White count today 5.2, hemoglobin 13.8, platelet count 150. BUN today 75, creatinine 23.1. Sodium 143, potassium 3.1. ASSESSMENT: Decreased responsiveness in the setting of acute and chronic renal failure. Evidently seizure is a consideration but it may well be all metabolic due to the severe kidney dysfunction. Neurologic-campoverde, he is scheduled for an MRI and I am going to order an EEG. We will reassess after this. Will use Ativan p.r.n. if there is any seizure recurrence. His mentation seems to have improved remarkably well. Elizabeth Covarrubias MD [facility] /9:38 AM /9:55 AM
[2016-06-03] MEDS: SEVELAMER CARBONATE 800 MG TAB PO SCH ×3 (12:00→17:00)
[2016-06-03] MEDS: CALCITRIOL 0.25 MCG CAP PO SCH (12:23)
[2016-06-03] MEDS: SODIUM CHLOR 0.9% 1000 ML INJ 1,000 ML IV SCH (12:23)
[2016-06-03] MEDS: LOSARTAN 50 MG TAB PO SCH ×2 (12:24→20:00)
[2016-06-03] MEDS: DOCUSATE SODIUM 100 MG CAP PO SCH ×2 (12:24→20:00)
[2016-06-03] MEDS: CARVEDILOL 6.25 MG TAB PO SCH ×2 (12:24→20:00)
[2016-06-03] MEDS: PANTOPRAZOLE SODIUM 40 MG VIAL IV SCH (12:24)
--- NOTE | 2016-06-03 12:25 | EKG ---
Date Performed: 06/02/2016 Time Performed: 15:25:52 PTAGE: 89 years EKG: Sinus rhythm WITH SHORT ND INTERVAL POSSIBLE LEFT ATRIAL ENLARGEMENT LEFT VENTRICULAR HYPERTROPHY AND ST-T CHANGE ABNORMAL ECG INTERPRETATION BASED ON A DEFAULT AGE OF 41 YEARS NO PREVIOUS TRACING DOCTOR: Phong Roblero Interpretating Date/Time 06/03/2016 12:24:12
[2016-06-03] MEDS: NIFEdipine 10 MG CAP PO SCH ×2 (14:10→23:07)
--- NOTE | 2016-06-03 17:16 | EC ---
Study Study Date:06/03/2016 STUDY CONCLUSIONS SUMMARY - Left ventricle: The cavity size was normal. Wall thickness was increased in a pattern of mild LVH. Systolic function was normal. The estimated ejection fraction was 60%. Wall motion was normal; there were no regional wall motion abnormalities. - Aortic valve: Trace regurgitation. - Right ventricle: The cavity size was normal. RV apical hypertrophy. - Pulmonary arteries: PA peak pressure: 38mm Hg (S). If LV function is below 40, please consider prescribing an ACEI or ARB or document rationale for non-use. PROCEDURE DATA STUDY STATUS: Elective. Procedure: Transthoracic echocardiography. Image quality was good. Scanning was performed from the parasternal, apical, and subcostal acoustic windows. Study completion: The patient tolerated the procedure well. Transthoracic echocardiography. M-mode, complete 2D, complete spectral Doppler, and color Doppler. Patient status: Inpatient. CARDIAC ANATOMY LEFT VENTRICLE: The cavity size was normal. Wall thickness was increased in a pattern of mild LVH. Systolic function was normal. The estimated ejection fraction was 60%. Wall motion was normal; there were no regional wall motion abnormalities. AORTIC VALVE: Trileaflet; normal thickness leaflets. Doppler: Transvalvular velocity was within the normal range. There was no stenosis. Trace regurgitation. AORTA: Aortic root: The aortic root was normal in size. MITRAL VALVE: Structurally normal valve. Doppler: Transvalvular velocity was within the normal range. There was no evidence for stenosis. Trace regurgitation. LEFT ATRIUM: The atrium was normal in size. RIGHT VENTRICLE: The cavity size was normal. RV apical hypertrophy. PULMONIC VALVE: Doppler: Transvalvular velocity was within the normal range. There was no evidence for stenosis. No regurgitation. TRICUSPID VALVE: Structurally normal valve. Doppler: Transvalvular velocity was within the normal range. Trace regurgitation. PULMONARY ARTERY: The main pulmonary artery was normal-sized. Systolic pressure was within the normal range. RIGHT ATRIUM: The atrium was normal in size. PERICARDIUM: There was no pericardial effusion. SYSTEMIC VEINS: Inferior vena cava: The vessel was normal in size. BASIC MEASUREMENTS ADULT Normal Left ventricle LV internal dimension, ED, chordal level, *41.9 mm 43-52 PLAX LV posterior wall thickness, ED 6.72 mm IVS/LVPW ratio, ED *1.67 <1.3 Ventricular septum Septal thickness, ED 11.2 mm Left atrium Anterior-posterior dimension 36 mm Right ventricle RV internal dimension, ED, PLAX 25.6 mm 19-38 DOPPLER MEASUREMENTS ADULT Normal Main pulmonary artery Pressure, S *38 mm Hg =30 Mitral valve Peak E-wave velocity 61.1 cm/s Peak A-wave velocity 93.2 cm/s Peak E/A ratio 0.7 Tricuspid valve Regurgitant peak velocity 183 cm/s Peak RV-RA gradient, S 13 mm Hg Maximal regurgitant velocity 183 cm/s Systemic veins Estimated CVP 10 mm Hg Right ventricle RV pressure, S *38 mm Hg <30 LEGEND: Mean values are shown as u=mean value. Asterisk (*) chandra values outside specified normal range. Prepared and signed by Evie Mclaughlin [id number]
[2016-06-03] MEDS: AZITHROMYCIN INJ 500 MG in SODIUM CHLOR 0.9% 250 ML INJ 250 ML IV SCH (18:00)
--- NOTE | 2016-06-03 18:36 | MG ---
cc: ELIZABETH BOX M.D. Lab No: Date: 06/03/2016 Age: Sex: M Race: REQUESTING PHYSICIAN Dr. Varela. INDICATION An EEG was obtained on this male patient in his 40s or 50s with a history of decreased responsiveness and renal failure. DETAILS The patient is described as awake, drowsy, calm, following commands. This EEG shows some theta and beta rhythms. There was rare or limited amount of alpha activity. There are delta rhythms. Intermittently there is an entrance in to ____ predominantly delta activity bilaterally. This pattern fluctuates intermittently with more awake and almost normal-looking rhythms. There are no distinct rhythmic discharges, no paroxysmal features present. INTERPRETATION Abnormal EEG because of intermittent severe slowing bilaterally. This is suggestive of a moderate to severe diffuse disturbance of cerebral function. There is no rhythmic activity to suggest ongoing ictal pattern. No lateralizing features. Clinical correlation and follow-up EEGs recommended. MD HEATH Armstrong/KK /6:07 PM /6:31 PM
[2016-06-04] VITALS (12 sets, daily range): BP systolic 147–182; BP diastolic 75–100; PULSE 73–91; RESP 12–20; TEMP 97.6–98.9; O2SAT 92–100
[2016-06-04] MEDS: RESP: ALBUTEROL 2.5 MG/IPRATROPIUM 0.5 MG NEB (SCH) INH ×4 (03:55→19:41)
[2016-06-04] MEDS: CHLORHEXIDINE GLUCONATE 2 % 1 PACK (2 CLOTHS) TOP SCH (04:00)
--- NOTE | 2016-06-04 04:50 | RADRPT ---
EXAM DATE/TIME: 06/04/2016 03:34 [place] COMPARISON: CHEST SINGLE AP, June 02, 2016, 15:47. INDICATIONS : Shortness of breath, possible pulmonary disease. MEDICAL HISTORY : None. SURGICAL HISTORY : None. ENCOUNTER: Subsequent ACUITY: 3 days PAIN SCORE: Non-responsive. LOCATION: Bilateral chest FINDINGS: There is patchy consolidation at the left lung base, modestly worse in the interim. Right lung remain s reasonably clear. No large effusion seen on either side. No pneumothorax. Heart size stable, upper limits of normal. Nasogastric tube and endotracheal tube out. CONCLUSION: Left base consolidation modestly worse. Interim extubation and nasogastric tube removal. Cisco Jolly MD on June 04, 2016 at 4:47 Board Certified Radiologist. This report was verified electronically.
[2016-06-04] MEDS: INSULIN NovoLIN REGULAR SUPPLEMENTAL SCALE SQ SCH ×2 (05:15→11:15)
[2016-06-04 05:30] LABS: AUTOMATED NEUTROPHIL # 3.5 TH/MM3 (1.8-7.7); BASOPHIL % 0.8 % (0.0-2.0); EOSINOPHIL # 0.1 TH/MM3 (0-0.4); EOSINOPHIL % 2.3 % (0.0-4.0); HEMO FLAGS DIFF FINAL; LYMPH % 18.8 % (9.0-44.0); MEAN CELL VOLUME 88.9 FL (80.0-100.0); MEAN CORPUSCULAR HEMOGLOBIN 29.9 PG (27.0-34.0); MEAN CORPUSCULAR HGB CONC 33.6 % (32.0-36.0); MONO % 12.4 % (0.0-8.0); NEUT % 65.7 % (16.0-70.0); PLATELET COUNT 165 TH/MM3 (150-450); RED CELL DISTRIBUTION WIDTH 15.3 % (11.6-17.2); WHITE BLOOD COUNT 5.3 TH/MM3 (4.0-11.0)
[2016-06-04] MEDS: PIPERACIL-TAZO 2.25 GM PREMIX 50 ML IV SCH ×3 (05:38→22:09)
[2016-06-04] MEDS: HEPARIN SODIUM - SQ 10,000 UNITS/ML VIAL SQ SCH ×2 (05:39→17:15)
[2016-06-04] MEDS: NIFEdipine 10 MG CAP PO SCH ×3 (05:39→22:07)
[2016-06-04 05:41] LABS: APTT (PATIENT) 32.1 SEC (24.3-30.1); PROTHROMBIN TIME - PATIENT 11.4 SEC (9.8-11.6)
[2016-06-04 06:01] LABS: ALKALINE PHOSPHATASE 98 U/L (45-117); ALT (GPT) 16 U/L (12-78); ANION GAP 15 MEQ/L (5-15); AST (GOT) LESS THAN 3 U/L (15-37); BICARBONATE 28.3 MEQ/L (21.0-32.0); BLOOD UREA NITROGEN 47 MG/DL (7-18); CHLORIDE 95 MEQ/L (98-107); GLOMERULAR FILTRATION RATE 3 ML/MIN (>89); POTASSIUM 3.7 MEQ/L (3.5-5.1); SODIUM (NA) 138 MEQ/L (136-145); TOTAL BILIRUBIN ADULT 0.6 MG/DL (0.2-1.0)
[2016-06-04 06:15] LABS: CREATINE KINASE 95 U/L (39-308)
[2016-06-04] MEDS ORDERED: hydrALAZINE HCL 20 MG/ML VIAL IV PUSH PRN (07:45)
--- NOTE | 2016-06-04 07:46 | HHI.CCPN ---
Subjective Remarks/Hospital Course The patient is a 52-cmd-idvu-old male with past medical history of end-stage renal disease on hemodialysis who was brought in by EMS for altered mental status. The roommate called EMS after the patient was found unresponsive. He regained consciousness en route. He is on peritoneal dialysis twice a day at home. The patient was given Narcan 0.4 mg en route without any significant relief. In the emergency room, he became unconscious again with a left lateral gaze. The patient was hypertensive with a blood pressure of 250/150 and he dropped his saturation in the 70s to 80s. The patient was subsequently intubated with etomidate and vecuronium and placed on full mechanical ventilation. In addition he is sedated with Diprivan and received Ativan 2 milligrams IV push at 1520. Due to his altered mental status, CT scan of the brain was obtained which did not show any evidence of acute intracranial process. He was started on Cardene drip and his last blood pressure was 160/83. ABG post-intubation showed a pH of 7.51, CO2 31, pAO2 307, bicarb 24 and saturation of 96% on assist control ventilation with a rate of 14, tidal volume 550, PEEP of 5 and 100% FIO2. His laboratory data is significant for a BUN of 98, a creatinine of 29.1 and a potassium level of 3.9. The patient also was found to have elevated lactic acid level at 5.1. His alcohol level was less than 3. 06/03: Resting currently in bed. Awake and alert and following commands. Appears to be old blood from oral gastric tube. No bowel movement. Subjective 06/04: Extubated yesterday without complication. Currently afebrile. Complaining of sore throat plus pain with swallowing. No bowel movement since admission. Tolerated hemodialysis well yesterday. Objective Vital Signs Date Time Temp Pulse Resp B/P Pulse Ox O2 Delivery O2 Flow Rate FiO2 06/04/16 06:00 91 06/04/16 04:00 98.9 14 173/91 97 06/03/16 16:52 21 06/02/16 19:13 Ventilator Intake and Output 06/03/16 06/03/16 06/04/16 08:00 16:00 00:00 Intake Total 560 ml 197 ml Output Total 100 ml 2100 ml Balance 460 ml -1903 ml Result Diagram: 06/04/16 0454 06/04/16 0454 Other Results Microbiology Date/Time Procedure Status Source Growth 06/02/16 15:38 Aerobic Blood Culture - Preliminary Resulted Blood Peripheral NO GROWTH IN 1 DAY 06/02/16 15:38 Anaerobic Blood Culture - Preliminary Resulted Blood Peripheral NO GROWTH IN 1 DAY Imaging Last Impressions Chest X-Ray 06/04/16 0600 Signed Impressions: Service Date/Time: Saturday, June 04, 2016 03:34 - CONCLUSION: Left base consolidation modestly worse. Interim extubation and nasogastric tube removal. Cisco Jolly MD Head CT 06/02/16 1522 Signed Impressions: Service Date/Time: Thursday, June 02, 2016 16:04 - CONCLUSION: Negative noncontrast CT brain. Hubert Gonzalez MD Objective Remarks GENERAL: Middle-aged AA male, critically ill currently resting in bed in no acute distress SKIN: Warm and dry. No rash HEAD: Atraumatic. Normocephalic. EYES: Pupils equal and round about 3 mm bilaterally and reactive. No scleral icterus. No injection or drainage. ENT: No nasal bleeding or discharge. Mucous membranes pink and moist. NECK: Trachea midline. No JVD. CARDIOVASCULAR: Regular rate and rhythm. S1, S2. No S4. No murmur RESPIRATORY: Few crackles appreciated in the left lower lobe.. Breath sounds equal bilaterally. GASTROINTESTINAL: Abdomen soft, non-tender, nondistended. Hypoactive bowel sounds are appreciated. Perineal dialysis catheter clean dry and intact MUSCULOSKELETAL: Extremities without significant peripheral edema. No obvious deformities. Left AV fistula positive thrill NEUROLOGICAL: Awake and alert. No obvious cranial nerve deficits. Motor grossly within normal limits. Moving all 4 extremities spontaneously and to command. A/P Assessment and Plan Neuro/Psych: Seizure? Hypertensive crisis? CT head 06/02 revealed no acute intracranial findings EEG 06/03 revealed intermittent severe slowing indicative severe to moderate disease pressor no ictal activity noted. Clinical correlation recommended. Currently not on any epileptiform medications. MRI brain ordered. Neurology/Dr. Covarrubias following CV: Hypertensive crisis Off Cardene drip. Home medications losartan 100 mg twice a day, lisinopril 20 mg daily, Coreg 25 mg daily, nifedipine 30 mg twice a day, hydralazine 25 mg daily # Resume losartan 50 mg twice a day, Coreg 12.5 mg twice a day, hydralazine 10 mg 3 times a day and and nifedipine 20 mg 3 times a day. Follow-up 2-D echocardiogram revealed EF 60%. Mild LVH. Trace AR. RV apical enlargement. DAVE 34 mmHg Currently on normal saline at 42 cc an hour Resp: Acute respiratory failure secondary to altered mental status Possible aspiration pneumonia/left lower lobe pneumonia Nasal cannula to maintain saturations greater than equal to 92% Incentive spirometry while awake Bronchodilator therapy every 6 hours and as needed Chest x-ray 06/04 reveals worsening of left lower lobe infiltrate. See ID for antibiotics GI: Gastroesophageal reflux disease Moderate protein calorie malnutrition Advance that as tolerated. Speech therapy to evaluate today. Protonix for GI prophylaxis. On Zantac 150 mg by mouth daily at home. Colace/as needed Senokot for bowel regimen : No indication for [place] catheter reviewed okay to remove Endo: Secondary hyperparathyroidism Low TSH. Sliding-scale insulin with Accu-Cheks every 6 hours to maintain euglycemia. Low regimen. Continue calcitriol 0.25 g by mouth daily. Check free T3/T4 Renal: End-stage renal disease - on peritoneal dialysis? Hemodialysis? Received hemodialysis -2 L overnight. We plan hemodialysis via left AV fistula today. Heme: CBC within normal limits. Follow CBC in a.m. ID: Pneumonia? Day #3 Zithromax/Zosyn for aspiration pneumonia. Pertinent cultures 06/02 - blood cultures 2 -no growth FEN: Hyperphosphatemia Resume Renagel 2400 mg by mouth 3 times a day/home medication Nephrology following MSK: PT evaluate and treat Access - Utilize peripheral IV. Central line if indicated Prophylaxis - GI - Protonix - DVT - SCD/heparin subcutaneous Critical Care: The total care time was 35 minutes. Time to perform other separately billable procedures was not included in the critical care time. Patient is stable from a critical care medicine standpoint. We will assign to the hospitalist in a.m. 06/05 and transfer to general medical floor. Slick Lu MD Jun 04, 2016 07:46 Slick Lu MD Jun 04, 2016 07:46
[2016-06-04] MEDS ORDERED: NITROGLYCERIN 2% OINT 1 GM PACKET TOPICAL PRN (08:00)
[2016-06-04] MEDS: PANTOPRAZOLE SODIUM 40 MG VIAL IV SCH (08:39)
[2016-06-04] MEDS: DOCUSATE SODIUM 100 MG CAP PO SCH ×2 (08:40→22:18)
[2016-06-04] MEDS: SEVELAMER CARBONATE 800 MG TAB PO SCH ×3 (08:40→17:14)
[2016-06-04] MEDS: CARVEDILOL 12.5 MG TAB PO SCH ×2 (08:40→22:07)
[2016-06-04] MEDS: LOSARTAN 50 MG TAB PO SCH ×2 (08:40→22:18)
[2016-06-04] MEDS: CALCITRIOL 0.25 MCG CAP PO SCH (08:40)
[2016-06-04] MEDS: LISINOPRIL 5 MG TAB PO SCH ×2 (09:00→22:07)
--- NOTE | 2016-06-04 09:58 | RADRPT ---
EXAM DATE/TIME: 06/04/2016 09:23 [place] COMPARISON: CT BRAIN W/O CONTRAST, June 02, 2016, 16:04. INDICATIONS : Seizures. MEDICAL HISTORY : Renal disease SURGICAL HISTORY : Rt hand surgery ENCOUNTER: Subsequent ACUITY: 2 day PAIN SCORE: 0/10 LOCATION: cranial TECHNIQUE: Multiplanar, multisequence MRI of the brain was performed without contrast. FINDINGS: CEREBRUM: The ventricles are normal for age. No evidence of midline shift, mass lesion, hemorrhage or acute in farction. No extraaxial fluid collections are seen. The pituitary gland and suprasellar cistern are normal in configuration. WHITE MATTER: Minimal periventricular deep white matter microvascular ischemic demyelinization.. POSTERIOR FOSSA: The cerebellum and brainstem are intact. The 4th ventricle is midline. The cerebellopontine angle is unremarkable. The cerebellar tonsils are normal in position. DIFFUSION IMAGING: No focal areas of restricted diffusion are seen. No evidence of acute infarction. EXTRACRANIAL: The visualized portions of the orbits and paranasal sinuses are unremarkable. CONCLUSION: No acute disease. Daniel Reynoso MD on June 04, 2016 at 9:55 Board Certified Radiologist. This report was verified electronically.
--- NOTE | 2016-06-04 10:26 | HHI.NPPN ---
Subjective Renal Failure: Chronic, End Stage Renal Disease Interval History Sitting up in bed. Blood pressure has improved. Dialyzed Saturday and Saturday. He has been on PD for years without complications. States he does not miss appointments which are every two weeks. (Maritza Klein) Objective Data Data 06/03/16 06/04/16 19:00 07:00 Intake Total 197 ml 1225 ml Output Total 2100 ml 0 ml Balance -1903 ml 1225 ml Intake Oral 240 ml IV Total 197 ml 985 ml Output Urine Total 0 ml 0 ml Gastric Drainage Total 100 ml Hemodialysis 2000 ml # Bowel Movements 0 Vital Signs Date Time Temp Pulse Resp B/P Pulse Ox O2 Delivery O2 Flow Rate FiO2 06/04/16 10:00 79 06/04/16 08:31 92 06/04/16 08:00 79 06/04/16 08:00 98.9 79 12 182/89 100 06/04/16 07:46 98.9 85 14 158/83 97 06/04/16 06:00 91 06/04/16 04:00 76 06/04/16 04:00 98.9 76 14 173/91 97 06/04/16 02:00 73 06/04/16 00:00 77 06/04/16 00:00 98.3 77 20 147/75 95 06/03/16 22:00 84 06/03/16 20:18 99 06/03/16 20:00 79 06/03/16 20:00 98.9 79 12 182/89 100 06/03/16 18:15 85 06/03/16 16:52 100 21 06/03/16 16:13 98.3 81 14 160/89 100 06/03/16 16:00 35 06/03/16 16:00 86 06/03/16 15:34 100 35 06/03/16 15:31 40 06/03/16 14:00 89 06/03/16 12:00 35 06/03/16 12:00 79 06/03/16 12:00 98.3 79 27 179/94 100 (Maritza Klein) -: 06/04/16 0454 06/04/16 0454 Imaging Last 72 hours Impressions Chest X-Ray 06/04/16 0600 Signed Impressions: Service Date/Time: Saturday, June 04, 2016 03:34 - CONCLUSION: Left base consolidation modestly worse. Interim extubation and nasogastric tube removal. Cisco Jolly MD Brain MRI 06/04/16 0000 Signed Impressions: Service Date/Time: Saturday, June 04, 2016 09:23 - CONCLUSION: No acute disease. Daniel Reynoso MD Head CT 06/02/16 1522 Signed Impressions: Service Date/Time: Thursday, June 02, 2016 16:04 - CONCLUSION: Negative noncontrast CT brain. Hubert Gonzalez MD Chest X-Ray 06/02/16 1522 Signed Impressions: Service Date/Time: Thursday, June 02, 2016 15:47 - CONCLUSION: 1. ET tube in good position. 2. Gastric tube side-port is above the level of the diaphragm and needs to be advanced at least 4 cm. 3. Patchy infiltrates at the left lung base with partial consolidation. Hubert Gonzalez MD Tubes & Lines: Tenckhoff Catheter (Maritza Klein) Physical Exam General Appearance: Well Developed, No Acute Distress, Comfortable (Maritza Klein B. [employer]) Throat Throat Exam: Oral Mucosa [place] & Moist (Maritza Klein B. [employer]) Pulmonary Resp Exam: Clear Bilaterally, Breath Sounds Equal (Maritza Klein [employer]. [employer]) Cardiology CV Exam: Regular, Normal Sinus Rhythm, Good Perfusion (Maritza Klein B. [employer]) Gastrointestinal/Abdomen GI Exam: Soft, Non-Tender, Positive Bowel Movement (Maritza Klein BHermilo [employer]) Musculoskeletal MS Exam: Joints Intact, Normal Tone, Good Strength (Maritza Klein BHermilo [employer]) Integumentary Skin Exam: Clear, Warm, Dry, Intact (Maritza Klein [employer]. [employer]) Extremeties Extremities Exam: No Edema, Pedal Pulses Palpable (Maritza Klein BHermilo [employer]) Neurologic Neuro Exam: Alert, Awake, Oriented, Speech Clear, Moving All Extremities ( Maritza Klein [employer]. [employer]) Psychiatric Psych Exam: Appropriate Responses (Maritza Klein) Assessment/Plan Discussed Condition With: Patient Problem List: (1) End stage renal disease Plan: BUN/Creatinine disproportionately elevated despite HD 06/02 (2 liter UF ) and 06/03 (2 liter UF) he states he has been on PD for years without complication electrolytes and acid base balance acceptable High BUN and creatinine suggest inadequate dialysis. He follows with Dr. Shipley outpatient AVF functions well, have used it for HD since admission daily renal panel continue Renvela, check phosphorus periodically continue Calcitrol for secondary hyperphosphatemia (2) Hypertensive emergency Plan: improved, on oral medications at this time (3) Encephalopathy Plan: Metabolic encephalopathy, ? seizure activity mental status has improved (Maritza Klein) Plan patient was seen and examined. He is much better. We will restart PD. (Bridger Vázquez MD) Maritza Klein Jun 04, 2016 10:26 Bridger Vázquez MD Jun 05, 2016 09:24
[2016-06-04] MEDS ORDERED: HEPARIN SODIUM - IV 10,000 UNITS/10 ML VIAL XX PRN (10:30)
[2016-06-04] MEDS ORDERED: SODIUM CHLORIDE 0.9% FLUSH 5 ML FLUSH IVF PRN (10:30)
[2016-06-04] MEDS: SODIUM CHLOR 0.9% 1000 ML INJ 1,000 ML IV SCH (11:24)
--- NOTE | 2016-06-04 11:52 | HHI.NPPN ---
Subjective Renal Failure: Chronic, End Stage Renal Disease Objective Data Data 06/03/16 06/04/16 19:00 07:00 Intake Total 197 ml 1225 ml Output Total 2100 ml 0 ml Balance -1903 ml 1225 ml Intake Oral 240 ml IV Total 197 ml 985 ml Output Urine Total 0 ml 0 ml Gastric Drainage Total 100 ml Hemodialysis 2000 ml # Bowel Movements 0 Vital Signs Date Time Temp Pulse Resp B/P Pulse Ox O2 Delivery O2 Flow Rate FiO2 06/04/16 10:00 79 06/04/16 08:31 92 06/04/16 08:00 79 06/04/16 08:00 98.9 79 12 182/89 100 06/04/16 07:46 98.9 85 14 158/83 97 06/04/16 06:00 91 06/04/16 04:00 76 06/04/16 04:00 98.9 76 14 173/91 97 06/04/16 02:00 73 06/04/16 00:00 77 06/04/16 00:00 98.3 77 20 147/75 95 06/03/16 22:00 84 06/03/16 20:18 99 06/03/16 20:00 79 06/03/16 20:00 98.9 79 12 182/89 100 06/03/16 18:15 85 06/03/16 16:52 100 21 06/03/16 16:13 98.3 81 14 160/89 100 06/03/16 16:00 35 06/03/16 16:00 86 06/03/16 15:34 100 35 06/03/16 15:31 40 06/03/16 14:00 89 06/03/16 12:00 35 06/03/16 12:00 79 06/03/16 12:00 98.3 79 27 179/94 100 -: 06/04/16 0454 06/04/16 0454 Tubes & Lines: Tenckhoff Catheter Physical Exam General Appearance: Well Developed, No Acute Distress, Comfortable Throat Throat Exam: Oral Mucosa [place] & Moist Pulmonary Resp Exam: Clear Bilaterally, Breath Sounds Equal Cardiology CV Exam: Regular, Normal Sinus Rhythm, Good Perfusion Gastrointestinal/Abdomen GI Exam: Soft, Non-Tender, Positive Bowel Movement Musculoskeletal MS Exam: Joints Intact, Normal Tone, Good Strength Integumentary Skin Exam: Clear, Warm, Dry, Intact Extremeties Extremities Exam: No Edema, Pedal Pulses Palpable Neurologic Neuro Exam: Alert, Awake, Oriented, Speech Clear, Moving All Extremities Psychiatric Psych Exam: Appropriate Responses Assessment/Plan Discussed Condition With: Patient Problem List: (1) End stage renal disease Plan: BUN/Creatinine disproportionately elevated despite HD 06/02 (2 liter UF ) and 06/03 (2 liter UF) he states he has been on PD for years without complication electrolytes and acid base balance acceptable High BUN and creatinine suggest inadequate dialysis. He follows with Dr. Shipley outpatient AVF functions well, have used it for HD since admission daily renal panel continue Renvela, check phosphorus periodically continue Calcitrol for secondary hyperphosphatemia (2) Hypertensive emergency Plan: improved, on oral medications at this time (3) Encephalopathy Plan: Metabolic encephalopathy, ? seizure activity mental status has improved Plan patient was seen and examined. He is now awake, oriented. Being transferred out of the ICU. We will begin PD from today. Bridger Vázquez MD Jun 04, 2016 11:52
--- NOTE | 2016-06-04 14:01 | HHI.PR ---
Review/Management Daily Summary alert and oriented, speaking well normal bedside motor exam wanting martin cath removed probably all metabolic encephalopathy prn neuro Subjective Subjective Comments No acute events reported No headache No chest pain No dyspnea Active Medications Current Medications Medications (Trade) Dose Ordered Sig/Chris Route Start Time Stop Time Status Last Admin (Cardene Inj/NS 250 ml Inj) 260 ml @ 0 mls/hr TITRATE IV 06/02/16 15:45 06/02/16 16:49 (Protonix Inj) 40 mg DAILY IV 06/02/16 17:15 06/04/16 08:39 (Heparin Inj) 5,000 units Q12H SQ 06/02/16 18:00 06/04/16 05:39 Miscellaneous Information 1 Q361D XX 06/02/16 17:15 06/02/16 17:15 (Chlorhexidine 2% Cloth) 3 pack Taper DAILY@04 TOP 06/03/16 04:00 05/30/17 03:59 06/04/16 04:00 (Chlorhexidine 2% Cloth) 3 pack UNSCH PRN TOP 06/02/16 17:15 Lorazepam 1 mg 1 mg Q4H PRN IV PUSH 06/02/16 17:15 (Zithromax Inj/ NS 250 ml Inj) 250 ml @ 250 mls/hr Q24H IV 06/02/16 18:00 06/03/16 18:00 (D50w (Vial) Inj) 25 ml UNSCH PRN IV PUSH 06/02/16 17:15 (Glucagon Inj) 1 mg UNSCH PRN OTHER 06/02/16 17:15 Insulin Human Regular 1 1 Q6H SQ 06/02/16 17:15 (NS 1000 ml Inj) 1,000 ml @ 0 mls/hr Q0M PRN IV 06/02/16 18:37 06/03/16 08:53 Heparin Sodium (Porcine) 8000 units 8,000 units UNSCH PRN IVF 06/02/16 18:45 Sodium Chloride 1,000 ml @ 200 mls/hr Q5H PRN IV 06/02/16 18:37 (NS 1000 ml Inj) 1,000 ml @ 0 mls/hr Q0M PRN IV 06/02/16 18:37 (Mannitol Inj) 12.5 gm UNSCH PRN IV 06/02/16 18:45 (Albumin 25% Inj) 25 gm UNSCH PRN IV 06/02/16 18:45 06/02/16 21:24 (NS Flush) 5 ml UNSCH PRN IVF 06/02/16 18:45 06/03/16 20:00 (Heparin Inj) UNSCH PRN .XX 06/02/16 18:45 (Gentamicin (Dialysis) Inj) 20 mg UNSCH PRN IV 06/02/16 18:45 (Zofran Inj) 4 mg UNSCH PRN IV 06/02/16 18:45 (Tylenol) 650 mg UNSCH PRN PO 06/02/16 18:45 (Benadryl) 25 mg UNSCH PRN PO 06/02/16 18:45 (Nitrostat Sl) 0.4 mg UNSCH PRN SL 06/02/16 18:45 (Catapres) 0.1 mg UNSCH PRN PO 06/02/16 18:45 (Gelfoam 12 Mm/7 Mm Top) 1 foam UNSCH PRN TOP 06/02/16 18:45 06/03/16 08:53 (Colace) 100 mg BID PO 06/03/16 09:00 06/04/16 08:40 (Senokot) 8.6 mg BID PRN PO 06/03/16 07:00 (Cozaar) 50 mg Q12HR PO 06/03/16 09:00 06/04/16 08:40 (Rocaltrol) 0.25 mcg DAILY PO 06/03/16 09:00 06/04/16 08:40 Sevelamer Carbonate 2400 mg 2,400 mg TIDAC PO 06/03/16 08:00 06/04/16 11:24 Piperacillin Sod/ Tazobactam Sod 50 ml @ 100 mls/hr Q8HR IV 06/03/16 14:00 06/04/16 08:39 (NS 1000 ml Inj) 1,000 ml @ 42 mls/hr [id number] IV 06/03/16 09:00 06/04/16 11:24 (Coreg) 12.5 mg Q12HR PO 06/04/16 09:00 06/04/16 08:40 (Procardia) 20 mg Q8HR PO 06/04/16 14:00 (Apresoline) 10 mg Q8HR PO 06/04/16 14:00 (Nitroglycerin 2% Oint) 2 inch Q6H PRN TOPICAL 06/04/16 08:00 (Prinivil) 5 mg Q12HR PO 06/04/16 09:00 06/04/16 09:00 (Apresoline Inj) 10 mg Q1HR PRN IV PUSH 06/04/16 07:45 06/04/16 11:24 (NS Flush) 10 ml UNSCH PRN IVF 06/04/16 10:30 Allergies Allergies Coded Allergies UNOBTAINABLE (Unverified06/02/16) Exam I&O / VS 06/03/16 06/03/16 06/04/16 15:00 23:00 07:00 Intake Total 197 ml 1225 ml Output Total 2100 ml 0 ml Balance -1903 ml 1225 ml Intake Oral 240 ml IV Total 197 ml 985 ml Output Urine Total 0 ml 0 ml Gastric Drainage Total 100 ml Hemodialysis 2000 ml # Bowel Movements 0 Vital Signs Date Time Temp Pulse Resp B/P Pulse Ox O2 Delivery O2 Flow Rate FiO2 06/04/16 12:00 98.0 88 18 165/100 97 06/04/16 10:00 79 06/04/16 08:31 92 06/04/16 08:00 79 06/04/16 08:00 98.9 79 12 182/89 100 06/04/16 07:46 98.9 85 14 158/83 97 06/04/16 06:00 91 06/04/16 04:00 76 06/04/16 04:00 98.9 76 14 173/91 97 06/04/16 02:00 73 06/04/16 00:00 77 06/04/16 00:00 98.3 77 20 147/75 95 06/03/16 22:00 84 06/03/16 20:18 99 06/03/16 20:00 79 06/03/16 20:00 98.9 79 12 182/89 100 06/03/16 18:15 85 06/03/16 16:52 100 21 06/03/16 16:13 98.3 81 14 160/89 100 06/03/16 16:00 35 06/03/16 16:00 86 06/03/16 15:34 100 35 06/03/16 15:31 40 06/03/16 14:00 89 Objective Radiology Results Last 48 hours Impressions Chest X-Ray 06/04/16 0600 Signed Impressions: Service Date/Time: Saturday, June 04, 2016 03:34 - CONCLUSION: Left base consolidation modestly worse. Interim extubation and nasogastric tube removal. Cisco Jolly MD Brain MRI 06/04/16 0000 Signed Impressions: Service Date/Time: Saturday, June 04, 2016 09:23 - CONCLUSION: No acute disease. Daniel Reynoso MD Head CT 06/02/16 1522 Signed Impressions: Service Date/Time: Thursday, June 02, 2016 16:04 - CONCLUSION: Negative noncontrast CT brain. Hubert Gonzalez MD Chest X-Ray 06/02/16 1522 Signed Impressions: Service Date/Time: Thursday, June 02, 2016 15:47 - CONCLUSION: 1. ET tube in good position. 2. Gastric tube side-port is above the level of the diaphragm and needs to be advanced at least 4 cm. 3. Patchy infiltrates at the left lung base with partial consolidation. Hubert Gonzalez MD Micro and Labs Laboratory Tests Test 06/04/16 04:54 White Blood Count 5.3 Red Blood Count 4.50 Hemoglobin 13.4 Hematocrit 40.0 Mean Corpuscular Volume 88.9 Mean Corpuscular Hemoglobin 29.9 Mean Corpuscular Hemoglobin 33.6 Concent Red Cell Distribution Width 15.3 Platelet Count 165 Mean Platelet Volume 10.0 Neutrophils (%) (Auto) 65.7 Lymphocytes (%) (Auto) 18.8 Monocytes (%) (Auto) 12.4 Eosinophils (%) (Auto) 2.3 Basophils (%) (Auto) 0.8 Neutrophils # (Auto) 3.5 Lymphocytes # (Auto) 1.0 Monocytes # (Auto) 0.7 Eosinophils # (Auto) 0.1 Basophils # (Auto) 0.0 CBC Comment DIFF FINAL Differential Comment Prothrombin Time 11.4 Prothromb Time International 1.0 Ratio Activated Partial 32.1 Thromboplast Time Sodium Level 138 Potassium Level 3.7 Chloride Level 95 Carbon Dioxide Level 28.3 Anion Gap 15 Blood Urea Nitrogen 47 Creatinine 18.32 Estimat Glomerular Filtration 3 Rate Random Glucose 80 Lactic Acid Level 0.8 Calcium Level 9.1 Phosphorus Level 8.1 Magnesium Level 2.0 Total Bilirubin 0.6 Aspartate Amino Transf LESS THAN 3 (AST/SGOT) Alanine Aminotransferase 16 (ALT/SGPT) Alkaline Phosphatase 98 Total Creatine Kinase 95 Total Protein 7.0 Albumin 2.7 Date/Time Procedure Status Source Growth 06/02/16 15:38 Aerobic Blood Culture - Preliminary Resulted Blood Peripheral NO GROWTH IN 2 DAYS 06/02/16 15:38 Anaerobic Blood Culture - Preliminary Resulted Blood Peripheral NO GROWTH IN 2 DAYS Prabha Covarrubias MD Jun 04, 2016 14:01
[2016-06-04] MEDS: hydrALAZINE HCL 10 MG TAB PO SCH ×2 (14:05→22:07)
[2016-06-04] MEDS: AZITHROMYCIN INJ 500 MG in SODIUM CHLOR 0.9% 250 ML INJ 250 ML IV SCH (17:14)
[2016-06-05] VITALS: BP 141/86; PULSE 95; RESP 18; TEMP 99.3; O2SAT 98
[2016-06-05] MEDS: CHLORHEXIDINE GLUCONATE 2 % 1 PACK (2 CLOTHS) TOP SCH (04:00)
[2016-06-05 04:45] VITALS: BP 167/87; PULSE 87; RESP 18; TEMP 98.7; O2SAT 96
[2016-06-05] MEDS: RESP: ALBUTEROL 2.5 MG/IPRATROPIUM 0.5 MG NEB (SCH) INH ×2 (04:55→10:24)
[2016-06-05] MEDS: HEPARIN SODIUM - SQ 10,000 UNITS/ML VIAL SQ SCH (05:21)
[2016-06-05] MEDS: PIPERACIL-TAZO 2.25 GM PREMIX 50 ML IV SCH (05:21)
[2016-06-05] MEDS: hydrALAZINE HCL 10 MG TAB PO SCH (05:21)
[2016-06-05] MEDS: NIFEdipine 10 MG CAP PO SCH (05:21)
[2016-06-05 06:56] LABS: HEMATOCRIT 35.7 % (39.0-51.0); MEAN CELL VOLUME 89.5 FL (80.0-100.0); MEAN CORPUSCULAR HEMOGLOBIN 29.3 PG (27.0-34.0); MEAN CORPUSCULAR HGB CONC 32.8 % (32.0-36.0); PLATELET COUNT 178 TH/MM3 (150-450); RED BLOOD COUNT 3.99 MIL/MM3 (4.50-5.90); RED CELL DISTRIBUTION WIDTH 15.5 % (11.6-17.2); REVIEW FLAG FINAL; WHITE BLOOD COUNT 5.9 TH/MM3 (4.0-11.0)
[2016-06-05 07:32] LABS: FREE T3 1.25 PG/ML (2.18-3.98); FREE T4 1.27 NG/DL (0.76-1.46); MAGNESIUM 1.9 MG/DL (1.5-2.5); POTASSIUM 3.6 MEQ/L (3.5-5.1)
[2016-06-05 08:00] VITALS: BP 162/91; PULSE 92; PULSE 93; RESP 18; TEMP 97.3; O2SAT 97
[2016-06-05] MEDS: LOSARTAN 50 MG TAB PO SCH (08:22)
[2016-06-05] MEDS: PANTOPRAZOLE SODIUM 40 MG VIAL IV SCH (08:22)
[2016-06-05] MEDS: CALCITRIOL 0.25 MCG CAP PO SCH (08:22)
[2016-06-05] MEDS: CARVEDILOL 12.5 MG TAB PO SCH (08:22)
[2016-06-05] MEDS: SEVELAMER CARBONATE 800 MG TAB PO SCH ×2 (08:22→12:00)
[2016-06-05] MEDS: LISINOPRIL 5 MG TAB PO SCH (08:22)
[2016-06-05] MEDS: DOCUSATE SODIUM 100 MG CAP PO SCH (08:22)
[2016-06-05] MEDS: SODIUM CHLOR 0.9% 1000 ML INJ 1,000 ML IV SCH (08:24)
--- NOTE | 2016-06-05 10:02 | HHI.NPPN ---
Subjective Renal Failure: Chronic, End Stage Renal Disease Interval History PD last night without complications. Feels better today. (Maritza Klein) Objective Data Data 06/04/16 06/05/16 19:00 07:00 Intake Total 304 ml 480 ml Balance 304 ml 480 ml Intake Oral 480 ml IV Total 304 ml Vital Signs Date Time Temp Pulse Resp B/P Pulse Ox O2 Delivery O2 Flow Rate FiO2 06/05/16 08:30 Room Air 06/05/16 08:00 97.3 93 18 162/91 97 06/05/16 04:45 98.7 87 18 167/87 96 06/05/16 00:00 99.3 95 18 141/86 98 06/04/16 20:00 83 06/04/16 20:00 98.1 88 18 167/93 96 06/04/16 20:00 83 06/04/16 19:43 96 21 06/04/16 16:00 97.6 88 18 153/87 97 06/04/16 12:00 98.0 88 18 165/100 97 (Maritza Klein) -: 06/05/16 0614 06/05/16 0614 Tubes & Lines: Tenckhoff Catheter (Maritza Klein) Physical Exam General Appearance: Well Developed, Well Nourished, No Acute Distress, Comfortable ( Maritza Klein) Throat Throat Exam: Oral Mucosa [place] & Moist (Maritza Klein) Pulmonary Resp Exam: Clear Bilaterally, Breath Sounds Equal (Maritza Klein) Cardiology CV Exam: Regular, Normal Sinus Rhythm, Good Perfusion (Maritza Klein) Gastrointestinal/Abdomen GI Exam: Soft, Non-Tender, Positive Bowel Movement (Maritza Klein) Musculoskeletal MS Exam: Joints Intact, Normal Tone, Good Strength (Maritza Klein) Integumentary Skin Exam: Clear, Warm, Dry, Intact (Maritza Klein) Extremeties Extremities Exam: No Edema, Pedal Pulses Palpable (Maritza Klein) Neurologic Neuro Exam: Alert, Awake, Oriented, Speech Clear, Moving All Extremities ( Maritza Klein) Psychiatric Psych Exam: Appropriate Responses (Maritza Klein) Assessment/Plan Discussed Condition With: Patient Problem List: (1) End stage renal disease Plan: HD 06/02 and 06/03 PD restarted 06/04, no complications continue Renvela, check phosphorus periodically continue Calcitrol for secondary hyperphosphatemia no IVF required martin was removed he is cleared for discharge from renal perspective. (2) Hypertensive emergency Plan: improved, on oral medications at this time (3) Encephalopathy Plan: Metabolic encephalopathy mental status has improved (Maritza Klein) Plan patient was seen and examined. Had PD without problems yesterday. He can be discharged from renal standpoint. Outpatient dialysis arrangements already exist , he is to go to [facility] tomorrow. Instructions given to the patient. (Bridger Vázquez MD) Maritza Klein Jun 05, 2016 10:02 Bridger Vázquez MD Jun 05, 2016 20:07
[2016-06-05 10:30] VITALS: O2SAT 99
[2016-06-05 12:00] VITALS: BP 173/94; PULSE 91; RESP 20; TEMP 98.2; O2SAT 93
[2016-06-05] MEDS ORDERED: HYDR25TA35 PO (12:32)
[2016-06-05] MEDS ORDERED: AZIT500T2 PO (12:32)
[2016-06-05] MEDS ORDERED: CARV12.52 PO (12:32)
[2016-06-05] MEDS ORDERED: CEFU1TAB20 PO (12:35)
--- NOTE | 2016-06-05 12:36 | HHI.DCPOC ---
Discharge Care Plan Diagnosis: (1) Encephalopathy (2) Hypertensive emergency (3) End stage renal disease (4) Peritoneal dialysis status (5) Respiratory failure (6) Status epilepticus (7) Aspiration pneumonia Goals to Promote Your Health * To prevent worsening of your condition and complications * To maintain your health at the optimal level Directions to Meet Your Goals Take your medications as prescribed Follow your dietary instruction Follow activity as directed Keep your appointments as scheduled Take your immunizations and boosters as scheduled If your symptoms worsen call your PCP, if no PCP go to Urgent Care Center or Emergency Room Smoking is Dangerous to Your Health. Avoid second hand smoke Call the 24-hour hour crisis hotline for domestic abuse at Gabe Eid MD Jun 05, 2016 12:36
--- NOTE | 2016-06-05 12:36 | HHI.DS ---
Discharge Summary Admission Date Jun 02, 2016 at 17:15 Discharge Date: Jun 05, 2016 Admitting Diagnosis status epilepticus, respiratory failure, hypertensive emergency, anil (1) End stage renal disease ICD Code: N18.6 (2) Hypertensive emergency ICD Code: I16.1 (3) Encephalopathy ICD Code: G93.40 (4) Aspiration pneumonia ICD Code: J69.0 (5) Respiratory failure ICD Code: J96.90 (6) Status epilepticus ICD Code: G40.901 (7) Peritoneal dialysis status ICD Code: Z99.2 Procedures Intubation and extubation Brief History - From Admission History of present illness from the admitting physician The patient is a [id number]-old male with past medical history of end-stage renal disease on hemodialysis who was brought in by EMS for altered mental status. The roommate called EMS after the patient was found unresponsive. He regained consciousness en route. He is on peritoneal dialysis twice a day at home. The patient was given Narcan 0.4 mg en route without any significant relief. In the emergency room, he became unconscious again with a left lateral gaze. The patient was hypertensive with a blood pressure of 250/150 and he dropped his saturation in the 70s to 80s. The patient was subsequently intubated with etomidate and vecuronium and placed on full mechanical ventilation. In addition he is sedated with Diprivan and received Ativan 2 milligrams IV push at 1520. Due to his altered mental status, CT scan of the brain was obtained which did not show any evidence of acute intracranial process. He was started on Cardene drip and his last blood pressure was 160/83. CBC/BMP: 06/05/16 0614 06/05/16 0614 Significant Findings Laboratory Tests Test 06/02/16 06/02/16 06/02/16 06/02/16 15:33 16:28 20:15 20:34 Chloride Level 97 MEQ/L 97 MEQ/L (98-107) (98-107) Anion Gap 21 MEQ/L (5-15) Bedside Blood Urea Nitrogen 94 MG/DL (8-26) Blood Urea Nitrogen 98 MG/DL (7-18) 80 MG/DL (7-18) Creatinine 29.15 MG/DL 23.15 MG/DL (0.60-1.30) (0.60-1.30) Bedside Creatinine GREATER THAN 20.0 MG/DL (0.8-1.3) Estimat Glomerular Filtration 2 ML/MIN (>89) 2 ML/MIN (>89) Rate Bedside Glucose 154 MG/DL (60-95) Random Glucose 154 MG/DL 146 MG/DL (74-106) (74-106) Lactic Acid Level 5.1 mmol/L (0.4-2.0) Aspartate Amino Transf 3 U/L (15-37) (AST/SGOT) Alkaline Phosphatase 127 U/L (45-117) Ammonia LESS THAN 10 MCMOL/L (11-32) Troponin I 0.16 NG/ML (0.02-0.05) Albumin 3.0 GM/DL (3.4-5.0) Red Blood Count 4.26 MIL/MM3 (4.50-5.90) Hematocrit 38.0 % (39.0-51.0) Neutrophils (%) (Auto) 75.8 % 83.2 % (16.0-70.0) (16.0-70.0) Monocytes (%) (Auto) 11.5 % (0.0-8.0) Lymphocytes # (Auto) 0.7 TH/MM3 0.6 TH/MM3 (1.0-4.8) (1.0-4.8) Arterial Blood pH 7.51 (7.380-7.420) Arterial Blood Partial 31 mmHg (38-42) Pressure CO2 Arterial Blood Partial 307 mmHG Pressure O2 (61-120) Arterial Blood Methemoglobin 2.1 % (0-2) Hepatitis C Antibody REACTIVE (NEGATIVE) Potassium Level 3.0 MEQ/L (3.5-5.1) Test 06/03/16 06/04/16 06/05/16 04:06 04:54 06:14 Monocytes (%) (Auto) 10.9 % 12.4 % (0.0-8.0) (0.0-8.0) Potassium Level 3.1 MEQ/L (3.5-5.1) Anion Gap 16 MEQ/L (5-15) Blood Urea Nitrogen 75 MG/DL (7-18) 47 MG/DL (7-18) 46 MG/DL (7-18) Creatinine 23.10 MG/DL 18.32 MG/DL 17.74 MG/DL (0.60-1.30) (0.60-1.30) (0.60-1.30) Estimat Glomerular Filtration 2 ML/MIN (>89) 3 ML/MIN (>89) 3 ML/MIN (>89) Rate Aspartate Amino Transf 5 U/L (15-37) LESS THAN 3 (AST/SGOT) U/L (15-37) Albumin 2.8 GM/DL 2.7 GM/DL (3.4-5.0) (3.4-5.0) Thyroid Stimulating Hormone 0.073 uIU/ML 3rd Gen (0.358-3.740) Activated Partial 32.1 SEC Thromboplast Time (24.3-30.1) Chloride Level 95 MEQ/L 95 MEQ/L (98-107) (98-107) Phosphorus Level 8.1 MG/DL 7.6 MG/DL (2.5-4.9) (2.5-4.9) Red Blood Count 3.99 MIL/MM3 (4.50-5.90) Hemoglobin 11.7 GM/DL (13.0-17.0) Hematocrit 35.7 % (39.0-51.0) Random Glucose 111 MG/DL (74-106) Calcium Level 8.3 MG/DL (8.5-10.1) Free Triiodothyronine (T3) 1.25 PG/ML pg/dL (2.18-3.98) Imaging Last Impressions Chest X-Ray 06/04/16 0600 Signed Impressions: Service Date/Time: Saturday, June 04, 2016 03:34 - CONCLUSION: Left base consolidation modestly worse. Interim extubation and nasogastric tube removal. Cisco Jolly MD Brain MRI 06/04/16 0000 Signed Impressions: Service Date/Time: Saturday, June 04, 2016 09:23 - CONCLUSION: No acute disease. Daniel Reynoso MD Head CT 06/02/16 1522 Signed Impressions: Service Date/Time: Thursday, June 02, 2016 16:04 - CONCLUSION: Negative noncontrast CT brain. Hubert Gonzalez MD PE at Discharge GENERAL: This is a well-nourished, well-developed patient, in no apparent distress. CARDIOVASCULAR: Normal rate and regular rhythm without murmurs, gallops, or rubs. RESPIRATORY: Good respiratory efforts. Breath sounds equal and clear to auscultation bilaterally. GASTROINTESTINAL: Abdomen soft, non-tender, non-distended. Normal active bowel sounds MUSCULOSKELETAL: Extremities without cyanosis, or edema. NEURO: Alert & Oriented x4 to person, place, time, situation. Moves all ext x4 PSYCH: Appropriate mood and affect. Pt update on day of discharge Patient reports that he is feeling well. He feels comfortable with discharge. He has an appointment with nephrology tomorrow for dialysis. Hospital Course 55-year-old male on peritoneal dialysis admitted with respiratory failure, hypertensive crisis requiring intubation in the field. The patient had a normal head CT. MRI was unremarkable. He was followed by neurology and his symptoms were attributed to metabolic causes. The patient was initially put on a Cardene drip and admitted to the ICU on a ventilator. He was treated for possible aspiration pneumonia with antibiotics. The patient on initial presentation had severely elevated BUN and creatinine which suggests inadequate dialysis. He was followed by nephrology and underwent hemodialysis. His renal function improved and was restarted back on peritoneal dialysis. His blood pressure improved and chronic antihypertensive were continued. The patient improved and was eventually extubated and transferred out of the ICU. He is discharged in stable condition to follow up outpatient with nephrology. Pt Condition on Discharge: Good Discharge Disposition: Discharge Home Discharge Time: <= 30 minutes Discharge Instructions Follow up Referrals: Nephrology New Medications: Azithromycin (Azithromycin) 500 Mg Tab 500 MG PO DAILY Infection #5 Ref 0 TAB Cefuroxime (Cefuroxime) 500 Mg Tab 500 MG PO BID Infection #14 Ref 0 TAB Changed Medications: Carvedilol (Carvedilol) 12.5 Mg Tab 12.5 MG PO BID #60 Ref 0 TAB (Changed from: Carvedilol 25 Mg Tab 25 Mg PO DAILY #60 TAB Ref 0) Hydralazine (Hydralazine) 25 Mg Tab 25 MG PO TID Take with a meal Blood Pressure Management #90 Ref 0 TAB (Changed from: DAILY; 60) Continued Medications: B-Complex W/ C & Folic Acid (Nephrocaps) 1 Cap 1 CAP PO DAILY If on dialysis, take after treatment. Nutritional Supplement #30 Ref 0 CAP Calcitriol (Calcitriol) 0.25 Mcg Cap 0.25 MCG PO Calcium Supplement #30 Ref 0 CAP Lisinopril (Lisinopril) 20 Mg Tab 20 MG PO DAILY #30 Ref 0 TAB Losartan (Losartan) 100 Mg Tab 100 MG PO BID Blood Pressure Management #30 Ref 0 TAB Nifedipine ER 24 HR (Afeditab CR) 30 Mg Tab 30 MG PO BID #30 Ref 0 TAB Pantoprazole (Pantoprazole) 40 Mg Tab 40 MG PO DAILY Reflux #30 Ref 0 TAB Ranitidine (Ranitidine) 150 Mg Tab 150 MG PO DAILY Heartburn Management #30 Ref 0 TAB Sevelamer HCl (Renagel) 800 Mg Tab 2400 MG PO TID Control phosphorus levels #90 Ref 0 TAB Gabe Eid MD Jun 05, 2016 12:36
== END 2016-06-05 14:15 | disposition home or self-care (01) | DRG 208 ==
LOC: NEPE 15:18 → EDBD 17:15 → NEDA 17:15 → HIMN 19:35 → N04A 06-04 10:57
PROVIDERS: ADMIT Family Medicine; ATTEND Family Medicine
PROC: 5A1935Z Respiratory Ventilation, Less than 24 Consecutive Hours (ICD-10-PCS; principal; 2016-06-02)
PROC: 0BH17EZ Insertion of Endotracheal Airway into Trachea, Via Natural or Artificial Opening (ICD-10-PCS; 2016-06-02)
PROC: 5A1D60Z (ICD-10-PCS; 2016-06-02)
DX: J96.01 Acute respiratory failure with hypoxia (principal); J69.0 Pneumonitis due to inhalation of food and vomit; G93.41 Metabolic encephalopathy; N17.9 Acute kidney failure, unspecified; I12.0 Hypertensive chronic kidney disease with stage 5 chronic kidney disease or end stage renal disease; N18.6 End stage renal disease; I16.1 Hypertensive emergency; E87.2 Acidosis; E44.0 Moderate protein-calorie malnutrition; N25.81 Secondary hyperparathyroidism of renal origin; R73.9 Hyperglycemia, unspecified; E83.39 Other disorders of phosphorus metabolism; E87.70 Fluid overload, unspecified; K21.9 Gastro-esophageal reflux disease without esophagitis; E87.6 Hypokalemia; G40.901 Epilepsy, unspecified, not intractable, with status epilepticus; Z68.24 Body mass index [BMI] 24.0-24.9, adult; Z72.0 Tobacco use; Z91.14 Patient's other noncompliance with medication regimen; Z99.2 Dependence on renal dialysis
CPT/HCPCS: 31500; 36600; 70450; 70551; 71010; 80048; 80053; 80074; 80320; 82140; 82435; 82550; 82565; 82805; 82947; 82948; 83605; 83735; 84100; 84132; 84295; 84439; 84443; 84481; 84484; 84520; 85025; 85027; 85610; 85730; 86850; 86900; 86901; 86920; 87040; 87641; 90935; 93005; 93306; 94002; 94003; 94150; 94640; 94664; 95819; 96365; 96366; 96368; 96374; 96375; C9113; J0360; J0456; J1644; J2060; J2543; J7030; J7050; P9047; P9612